=== PATIENT | male | born 1960 | race Caucasian/White ===

== ENCOUNTER 2019-02-20 22:45 | Inpatient (IN) ==
[2019-02-20] MEDS ORDERED: ALBUTEROL/IPRATROPIUM 3 ML NEB RESP TX STA (23:02)
[2019-02-20] MEDS ORDERED: methylPREDNISolone SOD SUC 125 MG/2 ML VIAL IV STA (23:02)
[2019-02-20 23:54] LABS: Basophils # 0.1 10*3/uL (0.0-0.2); Basophils % 0.7 % (0.0-0.8); Eosinophils # 0.2 10*3/uL (0.0-0.87); Eosinophils % 1.1 % (0.00-10.9); Hematocrit 40.5 VOL% (42.0-52.0); Hemoglobin 13.8 GM/DL (14.0-18.0); Immature Granulocytes % 0.4 %; Immature Granulocytes Absolute 0.06 #; Lymphocytes # 2.1 10*3/uL (1.4-4.0); Lymphocytes % 15.9 % (21.2-54.2); Mean Corpuscular HGB Conc 34.1 GM/DL (32-36); Mean Corpuscular Volume 94.4 FL (87-102); Mean Platelet Volume 9.1 FL (9.6-12.0); Monocytes % 10.6 % (1.7-12.7); Neutrophils % 71.3 % (38.7-73.9); Platelet Count 302 T/CUMM (130-400); Red Blood Count 4.29 MC/CUMM (3.8-5.5); Red Cell Distribution Width 13.4 % (9.3-17.3); White Blood Count 13.4 T/CUMM (4-12)
[2019-02-21 00:20] LABS: Albumin 4.1 G/DL (3.4-5.0); Bilirubin,Total 0.4 MG/DL (0.2-1.0); Calcium 9.3 MG/DL (8.5-10.1); Osmolality,Calculated 269.4 MOS/KG (273-304); Total Protein 7.3 G/DL (6.4-8.3)
[2019-02-21] MEDS ORDERED: MIDAZOLAM 2 MG/2 ML VIAL IV STA (00:43)
[2019-02-21] MEDS ORDERED: MEPERIDINE 50 MG/1 ML VIAL IV STA (00:44)
[2019-02-21] MEDS ORDERED: MEPERIDINE 25 MG/1 ML VIAL ONE (00:47)
[2019-02-21] MEDS ORDERED: ONDANSETRON 4 MG/2 ML VIAL IV PRN (01:22)
[2019-02-21] MEDS: MORPHINE 4 MG/1 ML VIAL IV PRN ×5 (01:42→18:00)
[2019-02-21] MEDS: ALBUTEROL/IPRATROPIUM 3 ML NEB RESP TX SCH ×6 (02:15→23:41)
[2019-02-21 03:15] LABS: Risk Ratio 3.13; Thyroid Stimulating Hormone 6.23 uIU/ml (0.358-3.74); VLDL CHOLESTEROL 24.2 MG/DL
[2019-02-21] MEDS: SODIUM CHLORIDE 0.9% 1,000 ML IV SCH ×3 (04:25→18:47)
[2019-02-21 04:26] LABS: Basophils % 0.3 % (0.0-0.8); Hemoglobin 13.4 GM/DL (14.0-18.0); Immature Granulocytes % 0.4 %; Immature Granulocytes Absolute 0.06 #; Lymphocytes # 0.4 10*3/uL (1.4-4.0); Lymphocytes % 2.9 % (21.2-54.2); Mean Corpuscular HGB Conc 34.4 GM/DL (32-36); Mean Corpuscular Volume 93.3 FL (87-102); Mean Platelet Volume 9.4 FL (9.6-12.0); Monocytes % 1.3 % (1.7-12.7); Neutrophils % 95.1 % (38.7-73.9); Platelet Count 317 T/CUMM (130-400); Red Blood Count 4.18 MC/CUMM (3.8-5.5); Red Cell Distribution Width 13.4 % (9.3-17.3); White Blood Count 14.8 T/CUMM (4-12)
[2019-02-21 04:53] LABS: Calcium 8.9 MG/DL (8.5-10.1); Osmolality,Calculated 269.4 MOS/KG (273-304)
[2019-02-21 05:17] LABS: Lymphocytes 4 % (20-55); Segmented Neutrophils 94 % (50-85); Total Cells Counted 100
[2019-02-21 05:18] LABS: Anisocytosis Slight; Microcytosis Slight; Stomatocytes Few
[2019-02-21 05:19] LABS: Platelet Estimate Normal; Polychromasia Slight
[2019-02-21] MEDS ORDERED: IPRATROPIUM 500 MCG/2.5 ML NEB RESP TX SCH (07:00)
[2019-02-21 07:27] LABS: Apearance,Urine CLEAR (Clear); Bilirubin,Urine Negative (Negative); Blood, Urine Negative (Negative); Glucose,Urine (UA) Negative (Negative); Hyaline Casts,Urine 4 /LPF (0-3); Ketones,Urine 5 mg/dL (Negative); Mucus,Urine Occasional /LPF (Occasional); Nitrite,Urine Negative (Negative); Protein,Urine Negative; RBC,Urine 3 /HPF (0-4); Squamous Epithelial Cell,Urine Occasional /HPF (0-10); Urine Color Yellow (Yellow); Urine Specific Gravity 1.017 (1.001-1.035); Urine Urobilinogen < 2.0 EU/DL (0.2-1.0); WBC,Urine <1 /HPF (0-6)
[2019-02-21] MEDS: PANTOPRAZOLE 40 MG TABLET PO SCH (09:05)
[2019-02-21] MEDS ORDERED: CLORAZEPATE 3.75 MG TABLET PO SCH (15:00)
[2019-02-22] MEDS: MORPHINE 4 MG/1 ML VIAL IV PRN ×3 (02:45→13:30)
[2019-02-22] MEDS: ALBUTEROL/IPRATROPIUM 3 ML NEB RESP TX SCH ×4 (03:30→15:32)
[2019-02-22 04:49] LABS: Basophils # 0.1 10*3/uL (0.0-0.2); Basophils % 0.4 % (0.0-0.8); Eosinophils # 0.1 10*3/uL (0.0-0.87); Eosinophils % 0.6 % (0.00-10.9); Lymphocytes # 2.9 10*3/uL (1.4-4.0); Lymphocytes % 23.5 % (21.2-54.2); Monocytes % 12.3 % (1.7-12.7); Neutrophils % 62.7 % (38.7-73.9); White Blood Count 12.1 T/CUMM (4-12)
[2019-02-22] MEDS: PANTOPRAZOLE 40 MG TABLET PO SCH ×2 (07:26→09:26)
[2019-02-22 16:45] VITALS: BP 115/76
== END 2019-02-22 18:40 | disposition home or self-care (01) | DRG 200 ==
LOC: EDBD → EDUNIT# → N.ED 22:45 → N.EDINP 22:45 → N.5E 02-21 02:49 → SUATTDRO 02-21 14:15
PROVIDERS: ADMIT Internal Medicine; ATTEND Internal Medicine

== ENCOUNTER 2019-02-25 04:28 | Inpatient (IN) ==
[2019-02-25] MEDS ORDERED: methylPREDNISolone SOD SUC 125 MG/2 ML VIAL IV STA (04:40)
[2019-02-25] MEDS ORDERED: SODIUM CHLORIDE 0.9% 500 ML IV STA (04:40)
[2019-02-25] MEDS ORDERED: ALBUTEROL/IPRATROPIUM 3 ML NEB RESP TX STA (04:40)
[2019-02-25] MEDS ORDERED: ONDANSETRON 4 MG/2 ML VIAL IV STA (04:40)
[2019-02-25] MEDS ORDERED: MORPHINE 4 MG/1 ML VIAL ONE (04:46)
[2019-02-25 05:03] LABS: Basophils # 0.1 10*3/uL (0.0-0.2); Basophils % 0.8 % (0.0-0.8); Eosinophils # 0.3 10*3/uL (0.0-0.87); Eosinophils % 4.2 % (0.00-10.9); Hematocrit 39.1 VOL% (42.0-52.0); Hemoglobin 13.7 GM/DL (14.0-18.0); Immature Granulocytes % 0.4 %; Immature Granulocytes Absolute 0.03 #; Lymphocytes # 2.3 10*3/uL (1.4-4.0); Lymphocytes % 30.6 % (21.2-54.2); Mean Corpuscular Volume 93.3 FL (87-102); Mean Platelet Volume 9.1 FL (9.6-12.0); Platelet Count 297 T/CUMM (130-400); Red Blood Count 4.19 MC/CUMM (3.8-5.5); Red Cell Distribution Width 13.1 % (9.3-17.3); White Blood Count 7.4 T/CUMM (4-12)
[2019-02-25 05:05] LABS: PT Patient Result 10.6 SECS
[2019-02-25 05:22] LABS: Alanine Aminotransferase 21 U/L (16-61); Albumin 3.9 G/DL (3.4-5.0); Alkaline Phosphatase 89 U/L (45-117); Aspartate Amino Transferase 13 U/L (0-37); Blood Urea Nitrogen 12 MG/DL (7-18); Calcium 9.2 MG/DL (8.5-10.1); Glucose 110 MG/DL (74-106); Total Protein 6.9 G/DL (6.4-8.3); Troponin I < 0.015 NG/ML (0.00-0.045)
[2019-02-25] MEDS ORDERED: ACETAMINOPHEN 325 MG TABLET PO PRN (06:07)
[2019-02-25] MEDS ORDERED: traZODone 50 MG TABLET PO PRN (06:07)
[2019-02-25] MEDS ORDERED: DOCUSATE SODIUM 100 MG CAPSULE PO PRN (06:07)
[2019-02-25] MEDS ORDERED: NICOTINE 21 MG/24 HR PATCH TRANSDERM PRN (06:07)
[2019-02-25] MEDS ORDERED: ONDANSETRON 4 MG/2 ML VIAL IV PRN (06:07)
[2019-02-25] MEDS ORDERED: MORPHINE 4 MG/1 ML VIAL IV STA (06:12)
[2019-02-25 06:26] LABS: ABG Base Excess 3.2 MMOL/L (-2.5-2.5); ABG HCO3 27.2 MMOL/L (20-26); ABG Oxygen Saturation 95.7 % (95-100); ABG PH 7.402 (7.35-7.45); ABG PO2 78.7 MM HG (80-95); ABG TCO2 24.8 MMOL/L (23-27); Allen Test Positive
[2019-02-25] MEDS: ALBUTEROL/IPRATROPIUM 3 ML NEB RESP TX SCH ×3 (08:24→19:27)
[2019-02-25] MEDS ORDERED: ROPINIROLE 2 MG PO SCH (09:00)
[2019-02-25] MEDS ORDERED: VARENICLINE 1 MG PO SCH (09:00)
[2019-02-25] MEDS: MONTELUKAST 10 MG TABLET PO SCH (09:09)
[2019-02-25] MEDS: oxyCODONE/ACETAMINOPHEN 5-325 MG TABLET PO PRN ×3 (09:09→21:28)
[2019-02-25] MEDS: ENOXAPARIN 40 MG/0.4 ML SYRINGE SUBCUT SCH (09:09)
[2019-02-25] MEDS: BUDESONIDE/FORMOTEROL 80-4.5 INHALER 6.9 GM INH SCH ×2 (09:11→21:28)
[2019-02-26] MEDS: ALBUTEROL/IPRATROPIUM 3 ML NEB RESP TX SCH ×4 (00:05→19:04)
[2019-02-26] MEDS: oxyCODONE/ACETAMINOPHEN 5-325 MG TABLET PO PRN ×4 (03:17→21:39)
[2019-02-26 04:43] LABS: Basophils % 0.2 % (0.0-0.8); Eosinophils # 0.1 10*3/uL (0.0-0.87); Eosinophils % 0.5 % (0.00-10.9); Hematocrit 35.2 VOL% (42.0-52.0); Hemoglobin 11.9 GM/DL (14.0-18.0); Immature Granulocytes % 0.5 %; Immature Granulocytes Absolute 0.05 #; Lymphocytes # 1.4 10*3/uL (1.4-4.0); Lymphocytes % 12.6 % (21.2-54.2); Mean Corpuscular HGB Conc 33.8 GM/DL (32-36); Mean Corpuscular Volume 94.6 FL (87-102); Mean Platelet Volume 9.2 FL (9.6-12.0); Monocytes % 11.6 % (1.7-12.7); Neutrophils % 74.6 % (38.7-73.9); Platelet Count 287 T/CUMM (130-400); Red Blood Count 3.72 MC/CUMM (3.8-5.5); Red Cell Distribution Width 13.1 % (9.3-17.3); White Blood Count 10.9 T/CUMM (4-12)
[2019-02-26 05:11] LABS: Calcium 8.8 MG/DL (8.5-10.1); Osmolality,Calculated 274.7 MOS/KG (273-304)
[2019-02-26] MEDS: ENOXAPARIN 40 MG/0.4 ML SYRINGE SUBCUT SCH (07:06)
[2019-02-26] MEDS: BUDESONIDE/FORMOTEROL 80-4.5 INHALER 6.9 GM INH SCH ×2 (08:35→21:38)
[2019-02-26] MEDS: MONTELUKAST 10 MG TABLET PO SCH (08:35)
[2019-02-27] MEDS: ALBUTEROL/IPRATROPIUM 3 ML NEB RESP TX SCH ×4 (00:41→19:48)
[2019-02-27] MEDS: oxyCODONE/ACETAMINOPHEN 5-325 MG TABLET PO PRN ×4 (03:37→23:14)
[2019-02-27 04:57] LABS: Basophils # 0.1 10*3/uL (0.0-0.2); Basophils % 0.9 % (0.0-0.8); Eosinophils # 0.2 10*3/uL (0.0-0.87); Eosinophils % 2.1 % (0.00-10.9); Hematocrit 35.9 VOL% (42.0-52.0); Hemoglobin 12.5 GM/DL (14.0-18.0); Immature Granulocytes % 0.3 %; Immature Granulocytes Absolute 0.03 #; Lymphocytes # 3.5 10*3/uL (1.4-4.0); Lymphocytes % 32.3 % (21.2-54.2); Mean Corpuscular HGB Conc 34.8 GM/DL (32-36); Mean Corpuscular Volume 93.7 FL (87-102); Mean Platelet Volume 9.3 FL (9.6-12.0); Monocytes % 10.5 % (1.7-12.7); Neutrophils % 53.9 % (38.7-73.9); Platelet Count 291 T/CUMM (130-400); Red Blood Count 3.83 MC/CUMM (3.8-5.5); Red Cell Distribution Width 13.3 % (9.3-17.3); White Blood Count 10.9 T/CUMM (4-12)
[2019-02-27 05:30] LABS: Calcium 8.9 MG/DL (8.5-10.1)
[2019-02-27] MEDS: ENOXAPARIN 40 MG/0.4 ML SYRINGE SUBCUT SCH (06:23)
[2019-02-27] MEDS: HYDROmorphone 2 MG/1 ML VIAL IV PRN ×2 (06:37→21:04)
[2019-02-27] MEDS: MONTELUKAST 10 MG TABLET PO SCH (09:15)
[2019-02-27] MEDS: BUDESONIDE/FORMOTEROL 80-4.5 INHALER 6.9 GM INH SCH ×2 (09:15→20:55)
[2019-02-28] MEDS: ALBUTEROL/IPRATROPIUM 3 ML NEB RESP TX SCH ×3 (00:56→13:05)
[2019-02-28 05:18] LABS: Basophils # 0.1 10*3/uL (0.0-0.2); Basophils % 0.9 % (0.0-0.8); Eosinophils # 0.3 10*3/uL (0.0-0.87); Eosinophils % 3.8 % (0.00-10.9); Hematocrit 35.9 VOL% (42.0-52.0); Hemoglobin 12.6 GM/DL (14.0-18.0); Immature Granulocytes % 0.3 %; Immature Granulocytes Absolute 0.02 #; Lymphocytes # 2.7 10*3/uL (1.4-4.0); Lymphocytes % 34.4 % (21.2-54.2); Mean Corpuscular HGB Conc 35.1 GM/DL (32-36); Mean Corpuscular Volume 93.7 FL (87-102); Mean Platelet Volume 9.6 FL (9.6-12.0); Monocytes % 12.8 % (1.7-12.7); Neutrophils % 47.8 % (38.7-73.9); Platelet Count 292 T/CUMM (130-400); Red Blood Count 3.83 MC/CUMM (3.8-5.5); Red Cell Distribution Width 13.2 % (9.3-17.3); White Blood Count 7.9 T/CUMM (4-12)
[2019-02-28 05:42] LABS: Osmolality,Calculated 274.7 MOS/KG (273-304)
[2019-02-28] MEDS: ENOXAPARIN 40 MG/0.4 ML SYRINGE SUBCUT SCH (06:18)
[2019-02-28] MEDS: oxyCODONE/ACETAMINOPHEN 5-325 MG TABLET PO PRN ×2 (06:18→12:15)
[2019-02-28] MEDS ORDERED: LACTULOSE 20 GM/30 ML UDCUP PO ONE (08:08)
[2019-02-28] MEDS ORDERED: BISACODYL 10 MG SUPP RECTAL ONE (08:08)
[2019-02-28] MEDS: MONTELUKAST 10 MG TABLET PO SCH (09:00)
[2019-02-28] MEDS: BUDESONIDE/FORMOTEROL 80-4.5 INHALER 6.9 GM INH SCH (09:01)
[2019-02-28 16:14] VITALS: BP 118/84
== END 2019-02-28 17:04 | disposition home or self-care (01) | DRG 201 ==
LOC: EDBD → EDUNIT# → N.ED 04:28 → SUATTDRO 06:07 → N.EDINP 06:07 → N.3E 06:48
PROVIDERS: ADMIT Internal Medicine; ATTEND Internal Medicine Cardiovascular Disease

== ENCOUNTER 2020-04-10 13:06 | Inpatient (IN) ==
[2020-04-10] MEDS ORDERED: NICOTINE 21 MG/24 HR PATCH TRANSDERM PRN (20:03)
[2020-04-10] MEDS ORDERED: ACETAMINOPHEN 325 MG TABLET PO PRN (20:03)
[2020-04-10] MEDS ORDERED: DOCUSATE SODIUM 100 MG CAPSULE PO PRN (20:03)
[2020-04-10] MEDS ORDERED: DEXTROSE 50% 25 GM/50 ML VIAL IV PRN (20:03)
[2020-04-10] MEDS ORDERED: ONDANSETRON 4 MG/2 ML VIAL IV PRN (20:03)
[2020-04-10] MEDS ORDERED: GLUCAGON 1 MG VIAL IM PRN (20:03)
[2020-04-10] MEDS ORDERED: diphenhydrAMINE CAP 25 MG CAPSULE PO PRN (20:03)
[2020-04-10] MEDS ORDERED: IPRATROPIUM 500 MCG/2.5 ML NEB RESP TX SCH (21:00)
[2020-04-10] MEDS ORDERED: ROPINIROLE 2 MG PO SCH (21:00)
[2020-04-10] MEDS: ROSUVASTATIN 10 MG TABLET PO SCH (21:41)
[2020-04-10] MEDS: rOPINIRole 1 MG TABLET PO SCH (21:41)
[2020-04-10] MEDS: BUDESONIDE/FORMOTEROL 160-4.5 INHALER 6 GM INH SCH (21:42)
[2020-04-10] MEDS: PIPERACILLIN/TAZOBACTAM 3,375 MG in SODIUM CHLORIDE 0.9% 100 ML IV SCH (21:42)
[2020-04-10] MEDS: ENOXAPARIN 40 MG/0.4 ML SYRINGE SUBCUT SCH (21:42)
[2020-04-10] MEDS: SODIUM CHLORIDE 0.9% 1,000 ML IV SCH (21:45)
[2020-04-11 00:14] LABS: Apearance,Urine CLEAR (Clear); Bilirubin,Urine Negative (Negative); Blood, Urine Small mg/dL (Negative); Glucose,Urine (UA) Negative (Negative); Hyaline Casts,Urine 1 /LPF (0-3); Ketones,Urine 5 mg/dL (Negative); Mucus,Urine Occasional /LPF (Occasional); Nitrite,Urine Negative (Negative); Protein,Urine 30 MG/DL; RBC,Urine 5 /HPF (0-4); Squamous Epithelial Cell,Urine Occasional /HPF (0-10); Urine Color Yellow (Yellow); Urine Specific Gravity 1.026 (1.001-1.035); WBC,Urine 1 /HPF (0-6)
[2020-04-11] MEDS: VANCOMYCIN INJ 1,000 MG in SODIUM CHLORIDE 0.9% 250 ML IV SCH (01:43)
[2020-04-11] MEDS: PIPERACILLIN/TAZOBACTAM 3,375 MG in SODIUM CHLORIDE 0.9% 100 ML IV SCH ×3 (05:00→21:24)
[2020-04-11 06:01] LABS: Basophils % 0.2 % (0.0-0.8); Eosinophils % 0.1 % (0.00-10.9); Hematocrit 31.6 VOL% (42.0-52.0); Immature Granulocytes % 0.8 %; Immature Granulocytes Absolute 0.16 #; Lymphocytes # 0.9 10*3/uL (1.4-4.0); Lymphocytes % 4.4 % (21.2-54.2); Mean Corpuscular HGB Conc 34.2 GM/DL (32-36); Mean Corpuscular Volume 95.8 FL (87-102); Mean Platelet Volume 8.9 FL (9.6-12.0); Monocytes % 8.5 % (1.7-12.7); Platelet Count 250 T/CUMM (130-400); Red Cell Distribution Width 13.6 % (9.3-17.3); White Blood Count 19.3 T/CUMM (4-12)
[2020-04-11 06:04] LABS: Hemoglobin 10.8 GM/DL (14.0-18.0)
[2020-04-11 06:17] LABS: Albumin 2.6 G/DL (3.4-5.0); Bilirubin,Total 0.7 MG/DL (0.2-1.0); Calcium 8.2 MG/DL (8.5-10.1); Osmolality,Calculated 259.9 MOS/KG (273-304); Thyroid Stimulating Hormone 0.496 uIU/ml (0.358-3.74); Total Protein 5.5 G/DL (6.4-8.3)
[2020-04-11 06:27] LABS: Band Neutrophils 2 % (0-10); Hypochromasia Slight; Lymphocytes 1 % (20-55); Microcytosis Slight; Ovalocytes Slight; Platelet Estimate Adequate; Segmented Neutrophils 88 % (50-85); Total Cells Counted 100
[2020-04-11] MEDS: ALBUTEROL/IPRATROPIUM 3 ML NEB RESP TX SCH ×4 (07:26→19:54)
[2020-04-11] MEDS: PANTOPRAZOLE 40 MG TABLET PO SCH (09:46)
[2020-04-11] MEDS: ASPIRIN EC 81 MG TABLET PO SCH (09:46)
[2020-04-11] MEDS: BUDESONIDE/FORMOTEROL 160-4.5 INHALER 6 GM INH SCH ×2 (09:46→21:26)
[2020-04-11] MEDS: MONTELUKAST 10 MG TABLET PO SCH (09:46)
[2020-04-11] MEDS: SODIUM CHLORIDE 0.9% 1,000 ML IV SCH ×2 (11:13→21:30)
[2020-04-11] MEDS: NEBIVOLOL 5 MG TABLET PO SCH (11:13)
[2020-04-11] MEDS: SPIRIVA RESPIMAT INH SCH (15:47)
[2020-04-11] MEDS: ENOXAPARIN 40 MG/0.4 ML SYRINGE SUBCUT SCH (21:25)
[2020-04-11] MEDS: rOPINIRole 1 MG TABLET PO SCH (21:26)
[2020-04-11] MEDS: ROSUVASTATIN 10 MG TABLET PO SCH (21:26)
[2020-04-12] MEDS: VANCOMYCIN INJ 1,000 MG in SODIUM CHLORIDE 0.9% 250 ML IV SCH (01:45)
[2020-04-12] MEDS: PIPERACILLIN/TAZOBACTAM 3,375 MG in SODIUM CHLORIDE 0.9% 100 ML IV SCH ×3 (05:35→21:15)
[2020-04-12 06:22] LABS: Basophils % 0.1 % (0.0-0.8); Eosinophils # 0.1 10*3/uL (0.0-0.87); Eosinophils % 0.4 % (0.00-10.9); Hematocrit 28.2 VOL% (42.0-52.0); Hemoglobin 9.7 GM/DL (14.0-18.0); Immature Granulocytes % 0.6 %; Immature Granulocytes Absolute 0.08 #; Lymphocytes # 2.5 10*3/uL (1.4-4.0); Lymphocytes % 17.8 % (21.2-54.2); Mean Corpuscular HGB Conc 34.4 GM/DL (32-36); Mean Corpuscular Volume 95.9 FL (87-102); Monocytes % 7.9 % (1.7-12.7); Neutrophils % 73.2 % (38.7-73.9); Platelet Count 240 T/CUMM (130-400); Red Blood Count 2.94 MC/CUMM (3.8-5.5); Red Cell Distribution Width 14.1 % (9.3-17.3); White Blood Count 13.8 T/CUMM (4-12)
[2020-04-12 06:36] LABS: Calcium 8.1 MG/DL (8.5-10.1); Osmolality,Calculated 264.4 MOS/KG (273-304)
[2020-04-12] MEDS: ALBUTEROL/IPRATROPIUM 3 ML NEB RESP TX SCH ×4 (07:55→18:50)
[2020-04-12] MEDS: NEBIVOLOL 5 MG TABLET PO SCH (10:10)
[2020-04-12] MEDS: ASPIRIN EC 81 MG TABLET PO SCH (10:10)
[2020-04-12] MEDS: MONTELUKAST 10 MG TABLET PO SCH (10:11)
[2020-04-12] MEDS: SPIRIVA RESPIMAT INH SCH (10:11)
[2020-04-12] MEDS: PANTOPRAZOLE 40 MG TABLET PO SCH (10:11)
[2020-04-12] MEDS: BUDESONIDE/FORMOTEROL 160-4.5 INHALER 6 GM INH SCH ×2 (10:11→21:15)
[2020-04-12] MEDS: ENOXAPARIN 40 MG/0.4 ML SYRINGE SUBCUT SCH (21:15)
[2020-04-12] MEDS: ROSUVASTATIN 10 MG TABLET PO SCH (21:15)
[2020-04-12] MEDS: rOPINIRole 1 MG TABLET PO SCH (21:15)
[2020-04-13] MEDS: SODIUM CHLORIDE 0.9% 1,000 ML IV SCH ×3 (01:30→20:30)
[2020-04-13] MEDS: VANCOMYCIN INJ 1,000 MG in SODIUM CHLORIDE 0.9% 250 ML IV SCH (01:30)
[2020-04-13] MEDS: PIPERACILLIN/TAZOBACTAM 3,375 MG in SODIUM CHLORIDE 0.9% 100 ML IV SCH (04:45)
[2020-04-13] MEDS: ALBUTEROL/IPRATROPIUM 3 ML NEB RESP TX SCH ×4 (07:21→19:56)
[2020-04-13] MEDS ORDERED: MAGNESIUM HYDROXIDE SUSP 30 ML UDCUP PO PRN (08:30)
[2020-04-13] MEDS ORDERED: LACTULOSE 20 GM/30 ML UDCUP PO PRN (08:30)
[2020-04-13] MEDS ORDERED: PROMETHAZINE 25 MG/1 ML VIAL IM PRN (08:30)
[2020-04-13] MEDS ORDERED: BISACODYL 10 MG SUPP RECTAL PRN (08:30)
[2020-04-13] MEDS ORDERED: propofoL 200 MG/20 ML VIAL IV ONE (08:31)
[2020-04-13] MEDS ORDERED: LIDOCAINE 2% 5 ML VIAL ONE (08:31)
[2020-04-13] MEDS ORDERED: SEVOFLURANE 1 UNIT/15 MINUTE INH ONE (08:31)
[2020-04-13] MEDS ORDERED: SODIUM CHLORIDE 0.9% 1,000 ML IV ONE (08:32)
[2020-04-13] MEDS ORDERED: ONDANSETRON 4 MG/2 ML VIAL ONE ×2 (08:32)
[2020-04-13] MEDS ORDERED: MEPERIDINE 25 MG/1 ML VIAL IV PRN (08:32)
[2020-04-13] MEDS ORDERED: MEPERIDINE 25 MG/1 ML VIAL ONE (08:32)
[2020-04-13] MEDS ORDERED: ACETAMINOPHEN 1,000 MG/100 ML VIAL IV ONE (08:32)
[2020-04-13] MEDS ORDERED: ONDANSETRON 4 MG/2 ML VIAL IV PRN (08:32)
[2020-04-13] MEDS ORDERED: DEXAMETHASONE 4 MG/1 ML VIAL ONE (08:32)
[2020-04-13] MEDS ORDERED: MIDAZOLAM 2 MG/2 ML VIAL ONE (08:32)
[2020-04-13] MEDS ORDERED: PROMETHAZINE INJ 25 MG in SODIUM CHLORIDE 0.9% 50 ML IV PRN (08:32)
[2020-04-13] MEDS ORDERED: diphenhydrAMINE 50 MG/1 ML VIAL IV PRN (08:32)
[2020-04-13] MEDS ORDERED: fentaNYL 100 MCG/2 ML VIAL ONE (08:32)
[2020-04-13] MEDS ORDERED: MORPHINE 4 MG/1 ML VIAL IV PRN (08:55)
[2020-04-13] MEDS: MONTELUKAST 10 MG TABLET PO SCH (09:49)
[2020-04-13] MEDS: NEBIVOLOL 5 MG TABLET PO SCH (09:49)
[2020-04-13] MEDS: ASPIRIN EC 81 MG TABLET PO SCH (09:49)
[2020-04-13] MEDS: SULFAMETHOX/TRIMETHOPRIM 800-160 MG TABLET PO SCH ×2 (09:49→20:28)
[2020-04-13] MEDS: PANTOPRAZOLE 40 MG TABLET PO SCH (09:49)
[2020-04-13] MEDS: BUDESONIDE/FORMOTEROL 160-4.5 INHALER 6 GM INH SCH ×2 (09:50→20:29)
[2020-04-13] MEDS: MORPHINE 4 MG/1 ML VIAL IV PRN ×2 (09:50→14:35)
[2020-04-13] MEDS: SPIRIVA RESPIMAT INH SCH (10:30)
[2020-04-13] MEDS: CHOLECALCIFEROL 1,000 UNIT TABLET PO SCH (12:43)
[2020-04-13] MEDS: ENOXAPARIN 40 MG/0.4 ML SYRINGE SUBCUT SCH (20:28)
[2020-04-13] MEDS: rOPINIRole 1 MG TABLET PO SCH (20:28)
[2020-04-13] MEDS: ROSUVASTATIN 10 MG TABLET PO SCH (20:29)
[2020-04-14] MEDS: VANCOMYCIN INJ 1,000 MG in SODIUM CHLORIDE 0.9% 250 ML IV SCH (01:29)
[2020-04-14] MEDS: ALBUTEROL/IPRATROPIUM 3 ML NEB RESP TX SCH ×5 (01:31→19:10)
[2020-04-14] MEDS: SODIUM CHLORIDE 0.9% 1,000 ML IV SCH ×2 (06:39→14:12)
[2020-04-14 07:03] LABS: Basophils % 0.2 % (0.0-0.8); Eosinophils # 0.1 10*3/uL (0.0-0.87); Eosinophils % 0.5 % (0.00-10.9); Hematocrit 29.5 VOL% (42.0-52.0); Hemoglobin 10.1 GM/DL (14.0-18.0); Immature Granulocytes % 0.6 %; Immature Granulocytes Absolute 0.06 #; Lymphocytes # 2.2 10*3/uL (1.4-4.0); Lymphocytes % 21.1 % (21.2-54.2); Mean Corpuscular HGB Conc 34.2 GM/DL (32-36); Mean Corpuscular Volume 96.1 FL (87-102); Mean Platelet Volume 8.6 FL (9.6-12.0); Monocytes % 10.4 % (1.7-12.7); Neutrophils % 67.2 % (38.7-73.9); Platelet Count 278 T/CUMM (130-400); Red Blood Count 3.07 MC/CUMM (3.8-5.5); Red Cell Distribution Width 13.8 % (9.3-17.3); White Blood Count 10.2 T/CUMM (4-12)
[2020-04-14 07:37] LABS: Calcium 8.2 MG/DL (8.5-10.1)
[2020-04-14] MEDS: MORPHINE 4 MG/1 ML VIAL IV PRN ×3 (09:24→21:41)
[2020-04-14] MEDS: ASPIRIN EC 81 MG TABLET PO SCH (09:25)
[2020-04-14] MEDS: NEBIVOLOL 5 MG TABLET PO SCH (09:25)
[2020-04-14] MEDS: MONTELUKAST 10 MG TABLET PO SCH (09:25)
[2020-04-14] MEDS: SULFAMETHOX/TRIMETHOPRIM 800-160 MG TABLET PO SCH ×2 (09:26→21:32)
[2020-04-14] MEDS: CHOLECALCIFEROL 1,000 UNIT TABLET PO SCH (09:26)
[2020-04-14] MEDS: PANTOPRAZOLE 40 MG TABLET PO SCH (09:26)
[2020-04-14] MEDS: BUDESONIDE/FORMOTEROL 160-4.5 INHALER 6 GM INH SCH ×2 (09:32→21:33)
[2020-04-14] MEDS: SPIRIVA RESPIMAT INH SCH (09:33)
[2020-04-14] MEDS: ENOXAPARIN 40 MG/0.4 ML SYRINGE SUBCUT SCH (21:32)
[2020-04-14] MEDS: rOPINIRole 1 MG TABLET PO SCH (21:32)
[2020-04-14] MEDS: ROSUVASTATIN 10 MG TABLET PO SCH (21:32)
[2020-04-15] MEDS: SODIUM CHLORIDE 0.9% 1,000 ML IV SCH ×2 (03:35→10:46)
[2020-04-15] MEDS ORDERED: propofoL 200 MG/20 ML VIAL IV ONE (08:09)
[2020-04-15] MEDS ORDERED: MIDAZOLAM 2 MG/2 ML VIAL ONE (08:10)
[2020-04-15] MEDS ORDERED: fentaNYL 100 MCG/2 ML VIAL ONE (08:10)
[2020-04-15] MEDS ORDERED: ONDANSETRON 4 MG/2 ML VIAL ONE (08:10)
[2020-04-15] MEDS ORDERED: SEVOFLURANE 1 UNIT/15 MINUTE INH ONE (08:10)
[2020-04-15] MEDS ORDERED: DEXAMETHASONE 4 MG/1 ML VIAL ONE (08:10)
[2020-04-15] MEDS ORDERED: LIDOCAINE 2% 5 ML VIAL ONE (08:10)
[2020-04-15] MEDS: ALBUTEROL/IPRATROPIUM 3 ML NEB RESP TX SCH ×3 (08:11→16:31)
[2020-04-15] MEDS: MONTELUKAST 10 MG TABLET PO SCH (09:24)
[2020-04-15] MEDS: ASPIRIN EC 81 MG TABLET PO SCH (09:24)
[2020-04-15] MEDS: CHOLECALCIFEROL 1,000 UNIT TABLET PO SCH (09:24)
[2020-04-15] MEDS: NEBIVOLOL 5 MG TABLET PO SCH (09:24)
[2020-04-15] MEDS: SULFAMETHOX/TRIMETHOPRIM 800-160 MG TABLET PO SCH (09:24)
[2020-04-15] MEDS: PANTOPRAZOLE 40 MG TABLET PO SCH (09:25)
[2020-04-15] MEDS: BUDESONIDE/FORMOTEROL 160-4.5 INHALER 6 GM INH SCH (09:29)
[2020-04-15] MEDS: SPIRIVA RESPIMAT INH SCH (09:29)
[2020-04-15 15:08] VITALS: BP 144/72
== END 2020-04-15 16:34 | disposition home or self-care (01) | DRG 464 ==
LOC: N.EDINP 18:31 → SUATTDRO 18:31 → N.3E 19:04
PROVIDERS: ADMIT Internal Medicine; ATTEND Internal Medicine

== ENCOUNTER 2021-03-09 17:46 | Observation (INO) ==
[2021-03-09] MEDS ORDERED: ALUM/MAG/SIMETH/LIDO VISC 1:1 30 ML BOTTLE PO STA (19:25)
[2021-03-09] MEDS ORDERED: ONDANSETRON 4 MG/2 ML VIAL IV STA (19:25)
[2021-03-09] MEDS ORDERED: MORPHINE 4 MG/1 ML VIAL IV STA (19:25)
[2021-03-09] MEDS ORDERED: NITROGLYCERIN 2% OINT 1 INCH/GM PACK TOP STA (19:25)
[2021-03-09] MEDS ORDERED: ASPIRIN 325 MG TABLET PO STA (19:25)
[2021-03-09 19:39] LABS: Basophils % 0.2 % (0.0-0.8); Hematocrit 37.9 VOL% (42.0-52.0); Hemoglobin 12.8 GM/DL (14.0-18.0); Immature Granulocytes % 0.6 %; Immature Granulocytes Absolute 0.06 #; Lymphocytes # 0.9 10*3/uL (1.4-4.0); Lymphocytes % 9.7 % (21.2-54.2); Mean Corpuscular HGB Conc 33.8 GM/DL (32-36); Mean Corpuscular Volume 97.9 FL (87-102); Mean Platelet Volume 8.9 FL (9.6-12.0); Monocytes % 6.5 % (1.7-12.7); Platelet Count 343 T/CUMM (130-400); Red Blood Count 3.87 MC/CUMM (3.8-5.5); Red Cell Distribution Width 13.9 % (9.3-17.3); White Blood Count 9.7 T/CUMM (4-12)
[2021-03-09 19:47] LABS: PT Patient Result 11.3 SECS (10.5-12.0)
[2021-03-09] MEDS ORDERED: ENOXAPARIN 100 MG/ML SYRINGE SUBCUT STA (20:00)
[2021-03-09] MEDS ORDERED: diphenhydrAMINE 50 MG/1 ML VIAL IV STA (20:17)
[2021-03-09] MEDS ORDERED: methylPREDNISolone SOD SUC 125 MG/2 ML VIAL IV STA (20:17)
[2021-03-09] MEDS ORDERED: FAMOTIDINE 20 MG/2 ML VIAL IV STA (20:17)
[2021-03-09] MEDS ORDERED: methylPREDNISolone SOD SUC 125 MG/2 ML VIAL ONE (20:18)
[2021-03-09] MEDS ORDERED: diphenhydrAMINE 50 MG/1 ML VIAL ONE (20:18)
[2021-03-09] MEDS ORDERED: FAMOTIDINE 20 MG/2 ML VIAL IV ONE (20:19)
[2021-03-09 21:58] LABS: Albumin 3.6 G/DL (3.4-5.0); Bilirubin,Total 0.4 MG/DL (0.2-1.0); Calcium 8.9 MG/DL (8.5-10.1); Osmolality,Calculated 264.4 MOS/KG (273-304); Potassium 3.9 MMOL/L (3.5-5.1); Total Protein 6.3 G/DL (6.4-8.2)
[2021-03-09] MEDS ORDERED: GLUCAGON 1 MG VIAL IM PRN (22:37)
[2021-03-09] MEDS ORDERED: guaiFENesin/DM ER 600-30 MG TABLET PO PRN (22:37)
[2021-03-09] MEDS ORDERED: diphenhydrAMINE CAP 25 MG CAPSULE PO PRN (22:37)
[2021-03-09] MEDS ORDERED: DEXTROSE 50% 25 GM/50 ML VIAL IV PRN (22:37)
[2021-03-09] MEDS ORDERED: ONDANSETRON 4 MG/2 ML VIAL IV PRN (22:37)
[2021-03-09] MEDS ORDERED: ACETAMINOPHEN 325 MG TABLET PO PRN (22:37)
[2021-03-09] MEDS ORDERED: NICOTINE 21 MG/24 HR PATCH TRANSDERM PRN (22:37)
[2021-03-09] MEDS ORDERED: ZALEPLON 5 MG CAPSULE PO PRN (22:37)
[2021-03-09] MEDS ORDERED: hydrALAZINE 20 MG/1 ML VIAL IV PRN (22:37)
[2021-03-10 01:32] LABS: Basophils % 0.2 % (0.0-0.8); Hematocrit 40.4 VOL% (42.0-52.0); Immature Granulocytes % 0.4 %; Immature Granulocytes Absolute 0.03 #; Lymphocytes # 0.5 10*3/uL (1.4-4.0); Lymphocytes % 6.5 % (21.2-54.2); Mean Corpuscular HGB Conc 34.7 GM/DL (32-36); Mean Corpuscular Volume 97.1 FL (87-102); Mean Platelet Volume 8.7 FL (9.6-12.0); Monocytes % 1.2 % (1.7-12.7); Neutrophils % 91.7 % (38.7-73.9); Platelet Count 329 T/CUMM (130-400); Red Blood Count 4.16 MC/CUMM (3.8-5.5); Red Cell Distribution Width 13.8 % (9.3-17.3); White Blood Count 8.4 T/CUMM (4-12)
[2021-03-10 01:55] LABS: Calcium 9.1 MG/DL (8.5-10.1); Osmolality,Calculated 260.8 MOS/KG (273-304); Potassium 4.6 MMOL/L (3.5-5.1)
[2021-03-10 02:07] LABS: Lymphocytes 9 % (20-55); Segmented Neutrophils 90 % (50-85); Total Cells Counted 100
[2021-03-10 02:08] LABS: Platelet Estimate Normal
[2021-03-10] MEDS: ALBUTEROL/IPRATROPIUM 3 ML NEB RESP TX SCH ×2 (02:31→06:58)
[2021-03-10] MEDS ORDERED: rOPINIRole 4 MG TABLET PO SCH (03:09)
[2021-03-10] MEDS ORDERED: SODIUM CHLORIDE 0.9% 1,000 ML IV SCH (07:00)
[2021-03-10] MEDS ORDERED: PANTOPRAZOLE 40 MG TABLET PO SCH (09:00)
[2021-03-10] MEDS ORDERED: ENOXAPARIN 40 MG/0.4 ML SYRINGE SUBCUT SCH (09:00)
[2021-03-10] MEDS ORDERED: DOCUSATE SODIUM 100 MG CAPSULE PO SCH (09:00)
[2021-03-10 12:28] VITALS: BP 92/58
== END 2021-03-10 15:25 | disposition home or self-care (01) ==
LOC: N.EDINP 17:46 → N.ED 17:46 → N.4E 03-10 00:41
PROVIDERS: ADMIT Hospitalist; ATTEND Hospitalist

== ENCOUNTER 2021-03-24 09:04 | Inpatient (IN) ==
[2021-03-24] MEDS ORDERED: methylPREDNISolone SOD SUC 125 MG/2 ML VIAL IV STA (09:37)
[2021-03-24] MEDS ORDERED: ALBUTEROL 2.5 MG/3 ML NEB RESP TX STA ×2 (09:37→10:51)
[2021-03-24 10:06] LABS: ABG Base Excess 2.7 MMOL/L (-2.5-2.5); ABG HCO3 30.6 MMOL/L (20-26); ABG PCO2 62.4 MM HG (35-48); ABG PH 7.308 (7.35-7.45); ABG PO2 113.1 MM HG (80-95); ABG TCO2 32.5 MMOL/L (23-27)
[2021-03-24 10:13] LABS: Basophils # 0.1 10*3/uL (0.0-0.2); Basophils % 0.9 % (0.0-0.8); Eosinophils # 0.1 10*3/uL (0.0-0.87); Eosinophils % 0.6 % (0.00-10.9); Hemoglobin 14.3 GM/DL (14.0-18.0); Immature Granulocytes % 0.4 %; Immature Granulocytes Absolute 0.04 #; Lymphocytes # 0.6 10*3/uL (1.4-4.0); Lymphocytes % 6.3 % (21.2-54.2); Mean Corpuscular HGB Conc 34.9 GM/DL (32-36); Mean Corpuscular Volume 97.2 FL (87-102); Mean Platelet Volume 8.9 FL (9.6-12.0); Neutrophils % 78.8 % (38.7-73.9); Platelet Count 264 T/CUMM (130-400); Red Blood Count 4.22 MC/CUMM (3.8-5.5); Red Cell Distribution Width 13.2 % (9.3-17.3); White Blood Count 8.9 T/CUMM (4-12)
[2021-03-24 10:39] LABS: Albumin 3.8 G/DL (3.4-5.0); Bilirubin,Total 0.4 MG/DL (0.20-1.00); Calcium 9.2 MG/DL (8.5-10.1); Osmolality,Calculated 255.1 MOS/KG (273-304); Potassium 4.2 MMOL/L (3.5-5.1); Total Protein 7.3 G/DL (6.4-8.2)
[2021-03-24] MEDS ORDERED: MIDAZOLAM 2 MG/2 ML VIAL ONE (11:04)
[2021-03-24] MEDS ORDERED: ETOMIDATE 20 MG/10 ML VIAL IV ONE (11:09)
[2021-03-24] MEDS ORDERED: ROCURONIUM 100 MG/10 ML VIAL IV ONE (11:10)
[2021-03-24] MEDS ORDERED: MIDAZOLAM 2 MG/2 ML VIAL IV STA (11:12)
[2021-03-24] MEDS: MIDAZOLAM 100 MG in SODIUM CHLORIDE 0.9% 80 ML IV PRN (11:20)
[2021-03-24 11:42] LABS: ABG Base Excess 0.1 MMOL/L (-2.5-2.5); ABG HCO3 24.5 MMOL/L (20-26); ABG PH 7.465 (7.35-7.45); ABG TCO2 20.2 MMOL/L (23-27)
[2021-03-24] MEDS ORDERED: SODIUM CHLORIDE 0.9% 2,000 ML IV STA (12:05)
[2021-03-24] MEDS: cefTRIAXone 1,000 MG in SODIUM CHLORIDE 0.9% 100 ML IV SCH (12:40)
[2021-03-24] MEDS: AZITHROMYCIN INJ 500 MG in SODIUM CHLORIDE 0.9% 250 ML IV SCH (13:08)
[2021-03-24] MEDS: ENOXAPARIN 40 MG/0.4 ML SYRINGE SUBCUT SCH (13:08)
[2021-03-24] MEDS: methylPREDNISolone SOD SUC 125 MG/2 ML VIAL IV SCH (13:10)
[2021-03-24] MEDS ORDERED: NOREPINEPHRINE 4 MG/4 ML VIAL IV ONE (13:58)
[2021-03-24] MEDS: NOREPINEPHRINE 8 MG in SODIUM CHLORIDE 0.9% 242 ML IV PRN (15:00)
[2021-03-24] MEDS: FAMOTIDINE 8 MG/ML 50 ML/BOTTLE PER TUBE SCH (21:35)
[2021-03-25] MEDS: methylPREDNISolone SOD SUC 125 MG/2 ML VIAL IV SCH ×2 (02:33→12:50)
[2021-03-25 04:40] LABS: ABG Base Excess 1.5 MMOL/L (-2.5-2.5); ABG HCO3 25.7 MMOL/L (20-26); ABG Oxygen Saturation 99.5 % (95-100); ABG PCO2 44.2 MM HG (35-48); ABG PH 7.391 (7.35-7.45); ABG TCO2 23.5 MMOL/L (23-27)
[2021-03-25 05:06] LABS: Hemoglobin 13.7 GM/DL (14.0-18.0); Immature Granulocytes % 0.5 %; Immature Granulocytes Absolute 0.05 #; Lymphocytes # 0.5 10*3/uL (1.4-4.0); Lymphocytes % 4.7 % (21.2-54.2); Mean Corpuscular HGB Conc 33.4 GM/DL (32-36); Mean Corpuscular Volume 98.8 FL (87-102); Mean Platelet Volume 8.9 FL (9.6-12.0); Monocytes % 6.8 % (1.7-12.7); Platelet Count 299 T/CUMM (130-400); Red Blood Count 4.15 MC/CUMM (3.8-5.5); Red Cell Distribution Width 13.2 % (9.3-17.3); White Blood Count 10.4 T/CUMM (4-12)
[2021-03-25 05:24] LABS: Calcium 8.8 MG/DL (8.5-10.1); Osmolality,Calculated 267.5 MOS/KG (273-304)
[2021-03-25 05:31] LABS: Band Neutrophils 5 % (0-10); Hypochromasia Slight; Lymphocytes 4 % (20-55); Microcytosis 1+; Ovalocytes Slight; Segmented Neutrophils 88 % (50-85); Total Cells Counted 100
[2021-03-25 05:32] LABS: Platelet Estimate Normal
[2021-03-25] MEDS: MIDAZOLAM 100 MG in SODIUM CHLORIDE 0.9% 80 ML IV PRN (05:48)
[2021-03-25 05:50] LABS: Albumin 3.4 G/DL (3.4-5.0); Bilirubin,Total 0.4 MG/DL (0.20-1.00); Calcium 8.9 MG/DL (8.5-10.1); Osmolality,Calculated 268.4 MOS/KG (273-304); Potassium 4.7 MMOL/L (3.5-5.1); Risk Ratio 1.48; Thyroid Stimulating Hormone 1.18 uIU/ml (0.358-3.74)
[2021-03-25] MEDS ORDERED: DEXTROSE 50% 25 GM/50 ML VIAL IV PRN (08:30)
[2021-03-25] MEDS ORDERED: GLUCAGON 1 MG VIAL IM PRN (08:30)
[2021-03-25] MEDS: FAMOTIDINE 8 MG/ML 50 ML/BOTTLE PER TUBE SCH ×2 (08:40→21:20)
[2021-03-25] MEDS: ENOXAPARIN 40 MG/0.4 ML SYRINGE SUBCUT SCH (12:50)
[2021-03-25] MEDS: cefTRIAXone 1,000 MG in SODIUM CHLORIDE 0.9% 100 ML IV SCH (12:55)
[2021-03-25] MEDS: AZITHROMYCIN INJ 500 MG in SODIUM CHLORIDE 0.9% 250 ML IV SCH (12:55)
[2021-03-25] MEDS ORDERED: INSULIN LISPRO 100 UNIT/ML ONE (23:41)
[2021-03-26] MEDS: INSULIN LISPRO 100 UNIT/ML SUBCUT SCH ×4 (00:12→17:54)
[2021-03-26] MEDS: methylPREDNISolone SOD SUC 125 MG/2 ML VIAL IV SCH ×3 (00:22→21:04)
[2021-03-26] MEDS: MIDAZOLAM 100 MG in SODIUM CHLORIDE 0.9% 80 ML IV PRN ×3 (00:46→23:27)
[2021-03-26 04:10] LABS: Allen Test Positive; Pt O2 Delivery Device Ventilator
[2021-03-26 04:15] LABS: ABG Base Excess -10.6 MMOL/L (-2.5-2.5); ABG HCO3 11.1 MMOL/L (20-26); ABG PH 7.411 (7.35-7.45); ABG PO2 128.2 MM HG (80-95); ABG TCO2 11.6 MMOL/L (23-27)
[2021-03-26 04:16] LABS: ABG Oxygen Saturation 98.7 % (95-100)
[2021-03-26 04:53] LABS: Basophils % 0.1 % (0.0-0.8); Hematocrit 37.5 VOL% (42.0-52.0); Hemoglobin 12.6 GM/DL (14.0-18.0); Immature Granulocytes % 0.6 %; Immature Granulocytes Absolute 0.07 #; Lymphocytes # 0.3 10*3/uL (1.4-4.0); Lymphocytes % 2.5 % (21.2-54.2); Mean Corpuscular HGB Conc 33.6 GM/DL (32-36); Mean Corpuscular Volume 99.5 FL (87-102); Monocytes % 3.3 % (1.7-12.7); Neutrophils % 93.5 % (38.7-73.9); Platelet Count 277 T/CUMM (130-400); Red Blood Count 3.77 MC/CUMM (3.8-5.5); Red Cell Distribution Width 13.9 % (9.3-17.3); White Blood Count 11.9 T/CUMM (4-12)
[2021-03-26 05:20] LABS: Calcium 8.3 MG/DL (8.5-10.1); Osmolality,Calculated 279.2 MOS/KG (273-304); Potassium 4.5 MMOL/L (3.5-5.1)
[2021-03-26 05:54] LABS: Band Neutrophils 1 % (0-10); Platelet Estimate Normal; Segmented Neutrophils 99 % (50-85); Total Cells Counted 100
[2021-03-26] MEDS: BISOPROLOL 5 MG TABLET PO SCH (09:28)
[2021-03-26] MEDS: CHOLECALCIFEROL 1,000 UNIT TABLET PO SCH (09:28)
[2021-03-26] MEDS: FAMOTIDINE 8 MG/ML 50 ML/BOTTLE PER TUBE SCH ×2 (09:29→21:05)
[2021-03-26] MEDS: MONTELUKAST 10 MG TABLET PO SCH (09:29)
[2021-03-26] MEDS: ASPIRIN EC 81 MG TABLET PO SCH (09:29)
[2021-03-26] MEDS: PIPERACILLIN/TAZOBACTAM 3,375 MG in SODIUM CHLORIDE 0.9% 100 ML IV SCH ×2 (09:30→17:50)
[2021-03-26 10:01] LABS: ABG Base Excess 0.2 MMOL/L (-2.5-2.5); ABG HCO3 24.6 MMOL/L (20-26); ABG Oxygen Saturation 97.4 % (95-100); ABG PCO2 57.5 MM HG (35-48); ABG PH 7.297 (7.35-7.45); ABG TCO2 24.8 MMOL/L (23-27)
[2021-03-26 12:03] LABS: ABG Base Excess -0.2 MMOL/L (-2.5-2.5); ABG HCO3 24.2 MMOL/L (20-26); ABG Oxygen Saturation 95.5 % (95-100); ABG PCO2 59.6 MM HG (35-48); ABG PH 7.281 (7.35-7.45); ABG PO2 87.9 MM HG (80-95); ABG TCO2 24.9 MMOL/L (23-27); Allen Test Positive; Pt O2 Delivery Device Ventilator
[2021-03-26] MEDS: AZITHROMYCIN INJ 500 MG in SODIUM CHLORIDE 0.9% 250 ML IV SCH (13:03)
[2021-03-26] MEDS: ENOXAPARIN 40 MG/0.4 ML SYRINGE SUBCUT SCH (13:04)
[2021-03-26 13:36] LABS: ABG Base Excess -1.5 MMOL/L (-2.5-2.5); ABG HCO3 23.2 MMOL/L (20-26); ABG PCO2 59.3 MM HG (35-48); ABG PH 7.266 (7.35-7.45); ABG TCO2 24.1 MMOL/L (23-27)
[2021-03-26] MEDS: NOREPINEPHRINE 8 MG in SODIUM CHLORIDE 0.9% 242 ML IV PRN (15:07)
[2021-03-26 18:07] LABS: ABG Base Excess 1.1 MMOL/L (-2.5-2.5); ABG HCO3 27.9 MMOL/L (20-26); ABG Oxygen Saturation 93.2 % (95-100); ABG PCO2 53.6 MM HG (35-48); ABG PH 7.334 (7.35-7.45); ABG PO2 71.1 MM HG (80-95); ABG TCO2 29.5 MMOL/L (23-27); Allen Test Positive; Pt O2 Delivery Device Ventilator
[2021-03-26] MEDS: ALBUTEROL/IPRATROPIUM 3 ML NEB RESP TX SCH (19:40)
[2021-03-26] MEDS: rOPINIRole 4 MG TABLET PO SCH (21:05)
[2021-03-26] MEDS: ROSUVASTATIN 10 MG TABLET PO SCH (21:05)
[2021-03-26] MEDS: MIRTAZAPINE 15 MG TABLET PO SCH (21:05)
[2021-03-27] MEDS: ALBUTEROL/IPRATROPIUM 3 ML NEB RESP TX SCH ×4 (00:30→19:30)
[2021-03-27] MEDS: INSULIN LISPRO 100 UNIT/ML SUBCUT SCH ×4 (00:37→18:01)
[2021-03-27] MEDS: PIPERACILLIN/TAZOBACTAM 3,375 MG in SODIUM CHLORIDE 0.9% 100 ML IV SCH ×3 (02:45→17:18)
[2021-03-27 03:09] LABS: ABG Base Excess 1.7 MMOL/L (-2.5-2.5); ABG HCO3 25.8 MMOL/L (20-26); ABG Oxygen Saturation 93.2 % (95-100); ABG PCO2 57.5 MM HG (35-48); ABG PH 7.317 (7.35-7.45); ABG PO2 72.8 MM HG (80-95); ABG TCO2 26.1 MMOL/L (23-27); Allen Test Positive; Pt O2 Delivery Device Ventilator
[2021-03-27 04:23] LABS: Basophils % 0.1 % (0.0-0.8); Hematocrit 37.1 VOL% (42.0-52.0); Hemoglobin 12.9 GM/DL (14.0-18.0); Immature Granulocytes % 1.4 %; Immature Granulocytes Absolute 0.17 #; Lymphocytes # 0.2 10*3/uL (1.4-4.0); Lymphocytes % 1.9 % (21.2-54.2); Mean Corpuscular HGB Conc 34.8 GM/DL (32-36); Mean Corpuscular Volume 96.9 FL (87-102); Mean Platelet Volume 9.4 FL (9.6-12.0); Monocytes % 8.7 % (1.7-12.7); Neutrophils % 87.9 % (38.7-73.9); Platelet Count 281 T/CUMM (130-400); Red Blood Count 3.83 MC/CUMM (3.8-5.5); Red Cell Distribution Width 14.2 % (9.3-17.3); White Blood Count 12.6 T/CUMM (4-12)
[2021-03-27] MEDS: methylPREDNISolone SOD SUC 125 MG/2 ML VIAL IV SCH ×3 (04:23→20:31)
[2021-03-27 04:36] LABS: Calcium 8.2 MG/DL (8.5-10.1); Osmolality,Calculated 281.2 MOS/KG (273-304); Potassium 5.1 MMOL/L (3.5-5.1)
[2021-03-27 04:42] LABS: Band Neutrophils 3 % (0-10); Lymphocytes 1 % (20-55); Ovalocytes Slight; Platelet Estimate Adequate; Segmented Neutrophils 86 % (50-85); Total Cells Counted 100
[2021-03-27 06:37] LABS: ABG PCO2 17.8 MM HG (35-48)
[2021-03-27] MEDS: CHOLECALCIFEROL 1,000 UNIT TABLET PO SCH (08:11)
[2021-03-27] MEDS: BISOPROLOL 5 MG TABLET PO SCH (08:11)
[2021-03-27] MEDS: ASPIRIN EC 81 MG TABLET PO SCH (08:12)
[2021-03-27] MEDS: MONTELUKAST 10 MG TABLET PO SCH (08:12)
[2021-03-27] MEDS: FAMOTIDINE 8 MG/ML 50 ML/BOTTLE PER TUBE SCH (08:12)
[2021-03-27] MEDS: ASPIRIN CHEW 81 MG TABLET PO SCH (09:25)
[2021-03-27] MEDS: NOREPINEPHRINE 8 MG in SODIUM CHLORIDE 0.9% 242 ML IV PRN (09:44)
[2021-03-27] MEDS ORDERED: NICOTINE 21 MG/24 HR PATCH TRANSDERM PRN (09:53)
[2021-03-27] MEDS: AZITHROMYCIN INJ 500 MG in SODIUM CHLORIDE 0.9% 250 ML IV SCH (11:45)
[2021-03-27] MEDS: ENOXAPARIN 40 MG/0.4 ML SYRINGE SUBCUT SCH (11:45)
[2021-03-27] MEDS: MIDAZOLAM 100 MG in SODIUM CHLORIDE 0.9% 80 ML IV PRN (18:05)
[2021-03-27] MEDS: MIRTAZAPINE 15 MG TABLET PO SCH (20:31)
[2021-03-27] MEDS: ROSUVASTATIN 10 MG TABLET PO SCH (20:31)
[2021-03-27] MEDS: rOPINIRole 4 MG TABLET PO SCH (20:31)
[2021-03-28] MEDS: INSULIN LISPRO 100 UNIT/ML SUBCUT SCH ×5 (00:06→23:36)
[2021-03-28] MEDS: FAMOTIDINE 8 MG/ML 50 ML/BOTTLE PER TUBE SCH ×3 (00:06→20:25)
[2021-03-28] MEDS: ALBUTEROL/IPRATROPIUM 3 ML NEB RESP TX SCH ×4 (00:50→19:13)
[2021-03-28] MEDS: PIPERACILLIN/TAZOBACTAM 3,375 MG in SODIUM CHLORIDE 0.9% 100 ML IV SCH ×3 (03:40→17:56)
[2021-03-28] MEDS: methylPREDNISolone SOD SUC 125 MG/2 ML VIAL IV SCH ×3 (03:40→20:25)
[2021-03-28 03:44] LABS: Basophils % 0.1 % (0.0-0.8); Hematocrit 35.7 VOL% (42.0-52.0); Hemoglobin 11.6 GM/DL (14.0-18.0); Immature Granulocytes % 0.4 %; Immature Granulocytes Absolute 0.04 #; Lymphocytes # 0.3 10*3/uL (1.4-4.0); Lymphocytes % 3.2 % (21.2-54.2); Mean Corpuscular HGB Conc 32.5 GM/DL (32-36); Mean Corpuscular Volume 101.1 FL (87-102); Mean Platelet Volume 9.5 FL (9.6-12.0); Monocytes % 8.2 % (1.7-12.7); Neutrophils % 88.1 % (38.7-73.9); Platelet Count 233 T/CUMM (130-400); Red Blood Count 3.53 MC/CUMM (3.8-5.5); Red Cell Distribution Width 14.1 % (9.3-17.3); White Blood Count 9.3 T/CUMM (4-12)
[2021-03-28 03:58] LABS: Calcium 8.3 MG/DL (8.5-10.1); Osmolality,Calculated 279.2 MOS/KG (273-304)
[2021-03-28 04:08] LABS: Band Neutrophils 1 % (0-10); Lymphocytes 1 % (20-55); Platelet Estimate Normal; Segmented Neutrophils 91 % (50-85); Total Cells Counted 100
[2021-03-28 04:38] LABS: ABG Base Excess 4.6 MMOL/L (-2.5-2.5); ABG HCO3 31.7 MMOL/L (20-26); ABG Oxygen Saturation 95.6 % (95-100); ABG PCO2 59.1 MM HG (35-48); ABG PH 7.348 (7.35-7.45); ABG PO2 82.3 MM HG (80-95); ABG TCO2 33.6 MMOL/L (23-27); Allen Test Positive; Pt O2 Delivery Device Ventilator
[2021-03-28] MEDS: CHOLECALCIFEROL 1,000 UNIT TABLET PO SCH (08:01)
[2021-03-28] MEDS: ASPIRIN CHEW 81 MG TABLET PO SCH (08:01)
[2021-03-28] MEDS: BISOPROLOL 5 MG TABLET PO SCH (08:01)
[2021-03-28] MEDS: MONTELUKAST 10 MG TABLET PO SCH (08:01)
[2021-03-28] MEDS: ALBUTEROL 2.5 MG/3 ML NEB RESP TX PRN (09:03)
[2021-03-28] MEDS: MORPHINE 2 MG/1 ML SYRINGE IV PRN ×2 (09:22→12:54)
[2021-03-28] MEDS: LORazepam 2 MG/1 ML VIAL IV PRN ×3 (09:36→23:58)
[2021-03-28] MEDS ORDERED: AMINOPHYLLINE 250 MG in SODIUM CHLORIDE 0.9% 100 ML IV ONE (12:00)
[2021-03-28] MEDS: AZITHROMYCIN INJ 500 MG in SODIUM CHLORIDE 0.9% 250 ML IV SCH (12:22)
[2021-03-28] MEDS: ENOXAPARIN 40 MG/0.4 ML SYRINGE SUBCUT SCH (12:22)
[2021-03-28] MEDS: MIDAZOLAM 100 MG in SODIUM CHLORIDE 0.9% 80 ML IV PRN (13:05)
[2021-03-28] MEDS: AMINOPHYLLINE 500 MG in SODIUM CHLORIDE 0.9% 480 ML IV SCH (15:50)
[2021-03-28] MEDS: rOPINIRole 4 MG TABLET PO SCH (20:25)
[2021-03-28] MEDS: ROSUVASTATIN 10 MG TABLET PO SCH (20:25)
[2021-03-28] MEDS: MIRTAZAPINE 15 MG TABLET PO SCH (20:25)
[2021-03-29] MEDS: ALBUTEROL/IPRATROPIUM 3 ML NEB RESP TX SCH ×4 (00:25→19:32)
[2021-03-29 03:17] LABS: Hemoglobin 11.8 GM/DL (14.0-18.0); Immature Granulocytes % 0.5 %; Immature Granulocytes Absolute 0.05 #; Lymphocytes # 0.4 10*3/uL (1.4-4.0); Lymphocytes % 3.5 % (21.2-54.2); Mean Corpuscular HGB Conc 32.8 GM/DL (32-36); Mean Corpuscular Volume 101.1 FL (87-102); Mean Platelet Volume 9.3 FL (9.6-12.0); Monocytes % 7.6 % (1.7-12.7); Neutrophils % 88.4 % (38.7-73.9); Platelet Count 244 T/CUMM (130-400); Red Blood Count 3.56 MC/CUMM (3.8-5.5); Red Cell Distribution Width 14.2 % (9.3-17.3); White Blood Count 10.9 T/CUMM (4-12)
[2021-03-29] MEDS: LORazepam 2 MG/1 ML VIAL IV PRN (03:18)
[2021-03-29] MEDS: methylPREDNISolone SOD SUC 125 MG/2 ML VIAL IV SCH ×3 (03:19→21:35)
[2021-03-29] MEDS: PIPERACILLIN/TAZOBACTAM 3,375 MG in SODIUM CHLORIDE 0.9% 100 ML IV SCH ×3 (03:19→19:59)
[2021-03-29 03:35] LABS: Calcium 8.5 MG/DL (8.5-10.1); Osmolality,Calculated 284.8 MOS/KG (273-304); Potassium 4.8 MMOL/L (3.5-5.1)
[2021-03-29 03:38] LABS: PT Patient Result 10.9 SECS (10.5-12.0); Partial Thromboplastin Time 28.2 SECS (23.9-33.8)
[2021-03-29 03:40] LABS: Lymphocytes 2 % (20-55); Platelet Estimate Adequate; Segmented Neutrophils 93 % (50-85); Total Cells Counted 100
[2021-03-29 03:41] LABS: Hypochromasia 1+; Microcytosis 1+
[2021-03-29 04:22] LABS: ABG Base Excess 6.2 MMOL/L (-2.5-2.5); ABG Oxygen Saturation 96.4 % (95-100); ABG PCO2 67.2 MM HG (35-48); ABG PH 7.321 (7.35-7.45); ABG PO2 86.2 MM HG (80-95); ABG TCO2 31.2 MMOL/L (23-27); Allen Test Positive; Pt O2 Delivery Device Ventilator
[2021-03-29] MEDS: MORPHINE 2 MG/1 ML SYRINGE IV PRN ×2 (04:25→10:35)
[2021-03-29] MEDS: NOREPINEPHRINE 8 MG in SODIUM CHLORIDE 0.9% 242 ML IV PRN (05:45)
[2021-03-29] MEDS: INSULIN LISPRO 100 UNIT/ML SUBCUT SCH ×3 (06:07→20:00)
[2021-03-29] MEDS: BISOPROLOL 5 MG TABLET PO SCH (08:21)
[2021-03-29] MEDS: CHOLECALCIFEROL 1,000 UNIT TABLET PO SCH (08:22)
[2021-03-29] MEDS: MONTELUKAST 10 MG TABLET PO SCH (08:22)
[2021-03-29] MEDS: FAMOTIDINE 8 MG/ML 50 ML/BOTTLE PER TUBE SCH ×2 (08:22→21:32)
[2021-03-29] MEDS: ASPIRIN CHEW 81 MG TABLET PO SCH (08:22)
[2021-03-29] MEDS: MIDAZOLAM 100 MG in SODIUM CHLORIDE 0.9% 80 ML IV PRN (10:50)
[2021-03-29] MEDS: ENOXAPARIN 40 MG/0.4 ML SYRINGE SUBCUT SCH (15:15)
[2021-03-29] MEDS: AMINOPHYLLINE 500 MG in SODIUM CHLORIDE 0.9% 480 ML IV SCH (20:45)
[2021-03-29] MEDS: ROSUVASTATIN 10 MG TABLET PO SCH (21:30)
[2021-03-29] MEDS: MIRTAZAPINE 15 MG TABLET PO SCH (21:30)
[2021-03-29] MEDS: rOPINIRole 4 MG TABLET PO SCH (21:30)
[2021-03-30] MEDS: ALBUTEROL/IPRATROPIUM 3 ML NEB RESP TX SCH ×4 (01:06→18:17)
[2021-03-30] MEDS: PIPERACILLIN/TAZOBACTAM 3,375 MG in SODIUM CHLORIDE 0.9% 100 ML IV SCH ×3 (01:15→18:07)
[2021-03-30 03:26] LABS: ABG Base Excess 8.8 MMOL/L (-2.5-2.5); ABG HCO3 32.6 MMOL/L (20-26); ABG Oxygen Saturation 97.2 % (95-100); ABG PCO2 62.7 MM HG (35-48); ABG PH 7.373 (7.35-7.45); ABG PO2 92.9 MM HG (80-95); ABG TCO2 32.6 MMOL/L (23-27); Allen Test Positive; Pt O2 Delivery Device Ventilator
[2021-03-30] MEDS: methylPREDNISolone SOD SUC 125 MG/2 ML VIAL IV SCH ×3 (04:08→20:18)
[2021-03-30 05:00] LABS: Basophils % 0.1 % (0.0-0.8); Hemoglobin 11.5 GM/DL (14.0-18.0); Immature Granulocytes % 0.6 %; Immature Granulocytes Absolute 0.07 #; Lymphocytes # 0.5 10*3/uL (1.4-4.0); Lymphocytes % 3.7 % (21.2-54.2); Mean Corpuscular HGB Conc 32.9 GM/DL (32-36); Mean Corpuscular Volume 100.9 FL (87-102); Mean Platelet Volume 9.5 FL (9.6-12.0); Monocytes % 6.6 % (1.7-12.7); Platelet Count 261 T/CUMM (130-400); Red Blood Count 3.47 MC/CUMM (3.8-5.5); Red Cell Distribution Width 14.1 % (9.3-17.3); White Blood Count 12.6 T/CUMM (4-12)
[2021-03-30 05:21] LABS: Lymphocytes 4 % (20-55); Segmented Neutrophils 92 % (50-85)
[2021-03-30 05:22] LABS: Platelet Estimate Normal; Total Cells Counted 100
[2021-03-30 05:33] LABS: Calcium 8.8 MG/DL (8.5-10.1); Osmolality,Calculated 290.5 MOS/KG (273-304); Potassium 4.3 MMOL/L (3.5-5.1)
[2021-03-30] MEDS: INSULIN LISPRO 100 UNIT/ML SUBCUT SCH ×4 (05:36→18:41)
[2021-03-30] MEDS: AMINOPHYLLINE 500 MG in SODIUM CHLORIDE 0.9% 480 ML IV SCH (05:37)
[2021-03-30] MEDS: MIDAZOLAM 100 MG in SODIUM CHLORIDE 0.9% 80 ML IV PRN (06:10)
[2021-03-30] MEDS: CHOLECALCIFEROL 1,000 UNIT TABLET PO SCH (08:19)
[2021-03-30] MEDS: MONTELUKAST 10 MG TABLET PO SCH (08:19)
[2021-03-30] MEDS: ASPIRIN CHEW 81 MG TABLET PO SCH (08:19)
[2021-03-30] MEDS: BISOPROLOL 5 MG TABLET PO SCH (08:19)
[2021-03-30] MEDS: FAMOTIDINE 8 MG/ML 50 ML/BOTTLE PER TUBE SCH ×2 (08:23→21:26)
[2021-03-30] MEDS: LORazepam 2 MG/1 ML VIAL IV PRN (08:58)
[2021-03-30] MEDS: ENOXAPARIN 60 MG/0.6 ML SYRINGE SUBCUT SCH ×2 (09:36→21:27)
[2021-03-30] MEDS: ALBUTEROL 0.4 MG/ML 30 ML/BOTTLE PER TUBE SCH ×2 (15:08→21:30)
[2021-03-30] MEDS: ROSUVASTATIN 10 MG TABLET PO SCH (21:25)
[2021-03-30] MEDS: MIRTAZAPINE 15 MG TABLET PO SCH (21:26)
[2021-03-30] MEDS: rOPINIRole 4 MG TABLET PO SCH (21:28)
[2021-03-31] MEDS: ALBUTEROL/IPRATROPIUM 3 ML NEB RESP TX SCH ×4 (00:11→19:40)
[2021-03-31] MEDS: INSULIN LISPRO 100 UNIT/ML SUBCUT SCH ×5 (00:45→23:45)
[2021-03-31] MEDS: PIPERACILLIN/TAZOBACTAM 3,375 MG in SODIUM CHLORIDE 0.9% 100 ML IV SCH ×3 (01:51→17:59)
[2021-03-31 02:21] LABS: ABG HCO3 32.8 MMOL/L (20-26); ABG Oxygen Saturation 99.4 % (95-100); ABG PCO2 44.2 MM HG (35-48); ABG PH 7.488 (7.35-7.45); ABG TCO2 29.6 MMOL/L (23-27)
[2021-03-31 05:15] LABS: Basophils % 0.1 % (0.0-0.8); Hematocrit 35.6 VOL% (42.0-52.0); Hemoglobin 11.7 GM/DL (14.0-18.0); Immature Granulocytes % 0.5 %; Immature Granulocytes Absolute 0.05 #; Lymphocytes # 0.5 10*3/uL (1.4-4.0); Lymphocytes % 4.5 % (21.2-54.2); Mean Corpuscular HGB Conc 32.9 GM/DL (32-36); Mean Corpuscular Volume 100.3 FL (87-102); Mean Platelet Volume 9.5 FL (9.6-12.0); Monocytes % 10.7 % (1.7-12.7); Neutrophils % 84.2 % (38.7-73.9); Platelet Count 263 T/CUMM (130-400); Red Blood Count 3.55 MC/CUMM (3.8-5.5); Red Cell Distribution Width 13.8 % (9.3-17.3); White Blood Count 10.8 T/CUMM (4-12)
[2021-03-31] MEDS: methylPREDNISolone SOD SUC 125 MG/2 ML VIAL IV SCH ×3 (05:17→21:04)
[2021-03-31] MEDS: ALBUTEROL 0.4 MG/ML 30 ML/BOTTLE PER TUBE SCH ×3 (05:19→22:18)
[2021-03-31 05:27] LABS: Calcium 8.5 MG/DL (8.5-10.1); Osmolality,Calculated 289.7 MOS/KG (273-304)
[2021-03-31] MEDS: AMINOPHYLLINE 500 MG in SODIUM CHLORIDE 0.9% 480 ML IV SCH ×2 (05:36→15:30)
[2021-03-31 05:37] LABS: Hypochromasia 1+; Lymphocytes 6 % (20-55); Microcytosis 1+; Platelet Estimate Adequate; Segmented Neutrophils 85 % (50-85); Total Cells Counted 100
[2021-03-31] MEDS: LORazepam 2 MG/1 ML VIAL IV PRN ×4 (07:33→22:27)
[2021-03-31] MEDS: MONTELUKAST 10 MG TABLET PO SCH (08:44)
[2021-03-31] MEDS: CHOLECALCIFEROL 1,000 UNIT TABLET PO SCH (08:44)
[2021-03-31] MEDS: ENOXAPARIN 60 MG/0.6 ML SYRINGE SUBCUT SCH ×2 (08:44→21:05)
[2021-03-31] MEDS: ASPIRIN CHEW 81 MG TABLET PO SCH (08:44)
[2021-03-31] MEDS: BISOPROLOL 5 MG TABLET PO SCH (08:44)
[2021-03-31] MEDS: FAMOTIDINE 8 MG/ML 50 ML/BOTTLE PER TUBE SCH ×2 (08:44→21:05)
[2021-03-31] MEDS: MIDAZOLAM 100 MG in SODIUM CHLORIDE 0.9% 80 ML IV PRN (16:12)
[2021-03-31] MEDS: rOPINIRole 4 MG TABLET PO SCH (21:04)
[2021-03-31] MEDS: ROSUVASTATIN 10 MG TABLET PO SCH (21:04)
[2021-03-31] MEDS: MIRTAZAPINE 15 MG TABLET PO SCH (21:05)
[2021-03-31] MEDS: MORPHINE 2 MG/1 ML SYRINGE IV PRN (22:25)
[2021-04-01] MEDS: ALBUTEROL/IPRATROPIUM 3 ML NEB RESP TX SCH ×4 (01:08→19:21)
[2021-04-01] MEDS: PIPERACILLIN/TAZOBACTAM 3,375 MG in SODIUM CHLORIDE 0.9% 100 ML IV SCH ×3 (02:40→17:53)
[2021-04-01 04:30] LABS: ABG Base Excess 8.4 MMOL/L (-2.5-2.5); ABG HCO3 32.2 MMOL/L (20-26); ABG Oxygen Saturation 98.5 % (95-100); ABG PCO2 49.3 MM HG (35-48); ABG PH 7.446 (7.35-7.45); ABG TCO2 30.1 MMOL/L (23-27); Allen Test Positive; Pt O2 Delivery Device Ventilator
[2021-04-01] MEDS: MORPHINE 2 MG/1 ML SYRINGE IV PRN ×3 (04:41→22:39)
[2021-04-01] MEDS: methylPREDNISolone SOD SUC 125 MG/2 ML VIAL IV SCH ×3 (04:43→17:04)
[2021-04-01 04:56] LABS: Basophils % 0.1 % (0.0-0.8); Hematocrit 33.1 VOL% (42.0-52.0); Hemoglobin 11.4 GM/DL (14.0-18.0); Immature Granulocytes % 0.8 %; Immature Granulocytes Absolute 0.09 #; Lymphocytes # 0.4 10*3/uL (1.4-4.0); Lymphocytes % 3.5 % (21.2-54.2); Mean Corpuscular HGB Conc 34.4 GM/DL (32-36); Mean Corpuscular Volume 96.8 FL (87-102); Mean Platelet Volume 9.7 FL (9.6-12.0); Monocytes % 9.6 % (1.7-12.7); Platelet Count 256 T/CUMM (130-400); Red Blood Count 3.42 MC/CUMM (3.8-5.5); Red Cell Distribution Width 13.7 % (9.3-17.3); White Blood Count 11.7 T/CUMM (4-12)
[2021-04-01 04:58] LABS: Calcium 8.4 MG/DL (8.5-10.1); Osmolality,Calculated 290.7 MOS/KG (273-304); Potassium 4.3 MMOL/L (3.5-5.1)
[2021-04-01] MEDS: AMINOPHYLLINE 500 MG in SODIUM CHLORIDE 0.9% 480 ML IV SCH (05:06)
[2021-04-01] MEDS: INSULIN LISPRO 100 UNIT/ML SUBCUT SCH ×4 (05:41→23:16)
[2021-04-01] MEDS: ALBUTEROL 0.4 MG/ML 30 ML/BOTTLE PER TUBE SCH ×3 (05:41→21:26)
[2021-04-01 06:20] LABS: Lymphocytes 4 % (20-55); Platelet Estimate Normal; Segmented Neutrophils 91 % (50-85); Total Cells Counted 100
[2021-04-01 06:25] LABS: Macrocytosis 1+
[2021-04-01 06:26] LABS: Hypochromasia Slight; Target Cells Slight
[2021-04-01] MEDS: BISOPROLOL 5 MG TABLET PO SCH (08:40)
[2021-04-01] MEDS: ENOXAPARIN 60 MG/0.6 ML SYRINGE SUBCUT SCH ×2 (08:40→20:17)
[2021-04-01] MEDS: FAMOTIDINE 8 MG/ML 50 ML/BOTTLE PER TUBE SCH ×2 (08:40→20:18)
[2021-04-01] MEDS: CHOLECALCIFEROL 1,000 UNIT TABLET PO SCH (08:40)
[2021-04-01] MEDS: MONTELUKAST 10 MG TABLET PO SCH (08:40)
[2021-04-01] MEDS: ASPIRIN CHEW 81 MG TABLET PO SCH (08:40)
[2021-04-01] MEDS: MIDAZOLAM 100 MG in SODIUM CHLORIDE 0.9% 80 ML IV PRN (15:04)
[2021-04-01] MEDS ORDERED: methylPREDNISolone SOD SUC 40 MG/1 ML VIAL ONE (17:05)
[2021-04-01] MEDS: ROSUVASTATIN 10 MG TABLET PO SCH (20:17)
[2021-04-01] MEDS: rOPINIRole 4 MG TABLET PO SCH (20:17)
[2021-04-01] MEDS: MIRTAZAPINE 15 MG TABLET PO SCH (20:17)
[2021-04-01] MEDS: methylPREDNISolone SOD SUC 40 MG/1 ML VIAL IV SCH (23:31)
[2021-04-02] MEDS: ALBUTEROL/IPRATROPIUM 3 ML NEB RESP TX SCH ×4 (01:31→19:55)
[2021-04-02] MEDS: PIPERACILLIN/TAZOBACTAM 3,375 MG in SODIUM CHLORIDE 0.9% 100 ML IV SCH ×3 (02:34→17:11)
[2021-04-02] MEDS: MORPHINE 2 MG/1 ML SYRINGE IV PRN ×3 (04:03→12:51)
[2021-04-02 04:29] LABS: Allen Test Positive; Pt O2 Delivery Device Ventilator
[2021-04-02 04:34] LABS: Basophils % 0.1 % (0.0-0.8); Hematocrit 32.1 VOL% (42.0-52.0); Hemoglobin 10.9 GM/DL (14.0-18.0); Immature Granulocytes % 0.8 %; Lymphocytes # 0.5 10*3/uL (1.4-4.0); Lymphocytes % 3.4 % (21.2-54.2); Mean Platelet Volume 9.9 FL (9.6-12.0); Monocytes % 8.2 % (1.7-12.7); Neutrophils % 87.5 % (38.7-73.9); Platelet Count 249 T/CUMM (130-400); Red Blood Count 3.31 MC/CUMM (3.8-5.5); Red Cell Distribution Width 13.6 % (9.3-17.3); White Blood Count 13.2 T/CUMM (4-12)
[2021-04-02 04:37] LABS: Calcium 8.2 MG/DL (8.5-10.1); Osmolality,Calculated 285.8 MOS/KG (273-304); Potassium 4.5 MMOL/L (3.5-5.1)
[2021-04-02 04:44] LABS: ABG Base Excess 8.1 MMOL/L (-2.5-2.5); ABG Oxygen Saturation 94.9 % (95-100); ABG PCO2 53.3 MM HG (35-48); ABG PH 7.422 (7.35-7.45); ABG PO2 76.9 MM HG (80-95); ABG TCO2 35.6 MMOL/L (23-27)
[2021-04-02 05:27] LABS: Lymphocytes 2 % (20-55); Microcytosis 1+; Platelet Estimate Adequate; Segmented Neutrophils 92 % (50-85); Total Cells Counted 100
[2021-04-02] MEDS: AMINOPHYLLINE 500 MG in SODIUM CHLORIDE 0.9% 480 ML IV SCH ×2 (05:39→15:16)
[2021-04-02] MEDS: INSULIN LISPRO 100 UNIT/ML SUBCUT SCH ×3 (05:40→17:24)
[2021-04-02] MEDS: ALBUTEROL 0.4 MG/ML 30 ML/BOTTLE PER TUBE SCH ×3 (05:41→22:35)
[2021-04-02] MEDS ORDERED: FUROSEMIDE 40 MG/4 ML VIAL IV ONE (07:56)
[2021-04-02] MEDS: CHOLECALCIFEROL 1,000 UNIT TABLET PO SCH (08:39)
[2021-04-02] MEDS: ASPIRIN CHEW 81 MG TABLET PO SCH (08:39)
[2021-04-02] MEDS: BISOPROLOL 5 MG TABLET PO SCH (08:40)
[2021-04-02] MEDS: MONTELUKAST 10 MG TABLET PO SCH (08:40)
[2021-04-02] MEDS: methylPREDNISolone SOD SUC 40 MG/1 ML VIAL IV SCH ×2 (08:41→17:10)
[2021-04-02] MEDS: ENOXAPARIN 60 MG/0.6 ML SYRINGE SUBCUT SCH ×2 (08:42→21:44)
[2021-04-02] MEDS: FAMOTIDINE 8 MG/ML 50 ML/BOTTLE PER TUBE SCH ×2 (08:44→21:44)
[2021-04-02] MEDS: MIDAZOLAM 100 MG in SODIUM CHLORIDE 0.9% 80 ML IV PRN (13:12)
[2021-04-02] MEDS: MIRTAZAPINE 15 MG TABLET PO SCH (21:44)
[2021-04-02] MEDS: ROSUVASTATIN 10 MG TABLET PO SCH (21:44)
[2021-04-02] MEDS: rOPINIRole 4 MG TABLET PO SCH (21:44)
[2021-04-03] MEDS: methylPREDNISolone SOD SUC 40 MG/1 ML VIAL IV SCH ×4 (00:05→23:30)
[2021-04-03] MEDS: ALBUTEROL/IPRATROPIUM 3 ML NEB RESP TX SCH ×4 (00:30→18:00)
[2021-04-03] MEDS: INSULIN LISPRO 100 UNIT/ML SUBCUT SCH ×4 (01:15→18:32)
[2021-04-03] MEDS: PIPERACILLIN/TAZOBACTAM 3,375 MG in SODIUM CHLORIDE 0.9% 100 ML IV SCH ×2 (01:31→09:08)
[2021-04-03] MEDS: MORPHINE 2 MG/1 ML SYRINGE IV PRN ×3 (03:23→21:36)
[2021-04-03 03:53] LABS: Basophils % 0.1 % (0.0-0.8); Hematocrit 30.7 VOL% (42.0-52.0); Hemoglobin 10.5 GM/DL (14.0-18.0); Immature Granulocytes % 0.8 %; Immature Granulocytes Absolute 0.15 #; Lymphocytes # 0.5 10*3/uL (1.4-4.0); Lymphocytes % 2.9 % (21.2-54.2); Mean Corpuscular HGB Conc 34.2 GM/DL (32-36); Mean Corpuscular Volume 97.5 FL (87-102); Monocytes % 7.3 % (1.7-12.7); Neutrophils % 88.9 % (38.7-73.9); Platelet Count 257 T/CUMM (130-400); Red Blood Count 3.15 MC/CUMM (3.8-5.5); Red Cell Distribution Width 13.5 % (9.3-17.3)
[2021-04-03 03:58] LABS: Calcium 8.3 MG/DL (8.5-10.1); Potassium 4.1 MMOL/L (3.5-5.1)
[2021-04-03 04:15] LABS: Hypochromasia 1+; Lymphocytes 3 % (20-55); Segmented Neutrophils 92 % (50-85); Total Cells Counted 100
[2021-04-03 04:16] LABS: Microcytosis 1+
[2021-04-03 04:17] LABS: Platelet Estimate Normal
[2021-04-03 04:35] LABS: Allen Test Positive; Pt O2 Delivery Device Ventilator
[2021-04-03 04:52] LABS: ABG Base Excess 8.4 MMOL/L (-2.5-2.5); ABG HCO3 34.4 MMOL/L (20-26); ABG Oxygen Saturation 97.4 % (95-100); ABG PCO2 54.7 MM HG (35-48); ABG PH 7.416 (7.35-7.45); ABG PO2 105.2 MM HG (80-95)
[2021-04-03] MEDS: ALBUTEROL 0.4 MG/ML 30 ML/BOTTLE PER TUBE SCH ×3 (06:20→22:35)
[2021-04-03] MEDS: ASPIRIN CHEW 81 MG TABLET PO SCH (09:05)
[2021-04-03] MEDS: CHOLECALCIFEROL 1,000 UNIT TABLET PO SCH (09:05)
[2021-04-03] MEDS: MONTELUKAST 10 MG TABLET PO SCH (09:05)
[2021-04-03] MEDS: ENOXAPARIN 60 MG/0.6 ML SYRINGE SUBCUT SCH ×2 (09:06→21:36)
[2021-04-03] MEDS: BISOPROLOL 5 MG TABLET PO SCH (09:07)
[2021-04-03] MEDS: FAMOTIDINE 8 MG/ML 50 ML/BOTTLE PER TUBE SCH ×2 (09:07→21:37)
[2021-04-03] MEDS: MEROPENEM 500 MG in SODIUM CHLORIDE 0.9% 100 ML IV SCH ×3 (12:30→22:00)
[2021-04-03] MEDS: ALPRAZolam 0.25 MG TABLET PO PRN (12:30)
[2021-04-03] MEDS: MIDAZOLAM 100 MG in SODIUM CHLORIDE 0.9% 80 ML IV PRN (15:00)
[2021-04-03] MEDS: AMINOPHYLLINE 500 MG in SODIUM CHLORIDE 0.9% 480 ML IV SCH (17:00)
[2021-04-03] MEDS: ROSUVASTATIN 10 MG TABLET PO SCH (21:35)
[2021-04-03] MEDS: MIRTAZAPINE 15 MG TABLET PO SCH (21:35)
[2021-04-03] MEDS: rOPINIRole 4 MG TABLET PO SCH (21:35)
[2021-04-04] MEDS: ALBUTEROL/IPRATROPIUM 3 ML NEB RESP TX SCH ×4 (00:15→18:00)
[2021-04-04] MEDS: INSULIN LISPRO 100 UNIT/ML SUBCUT SCH ×5 (01:35→23:57)
[2021-04-04] MEDS: MORPHINE 2 MG/1 ML SYRINGE IV PRN ×5 (02:50→20:25)
[2021-04-04 03:02] LABS: ABG Base Excess 8.7 MMOL/L (-2.5-2.5); ABG HCO3 32.4 MMOL/L (20-26); ABG Oxygen Saturation 97.7 % (95-100); ABG PCO2 50.1 MM HG (35-48); ABG PH 7.443 (7.35-7.45); ABG PO2 93.7 MM HG (80-95); ABG TCO2 30.6 MMOL/L (23-27)
[2021-04-04 03:39] LABS: Basophils % 0.1 % (0.0-0.8); Hemoglobin 10.6 GM/DL (14.0-18.0); Immature Granulocytes % 0.8 %; Immature Granulocytes Absolute 0.14 #; Lymphocytes # 0.4 10*3/uL (1.4-4.0); Lymphocytes % 2.1 % (21.2-54.2); Mean Corpuscular HGB Conc 34.2 GM/DL (32-36); Mean Corpuscular Volume 96.9 FL (87-102); Mean Platelet Volume 9.7 FL (9.6-12.0); Monocytes % 5.6 % (1.7-12.7); Neutrophils % 91.4 % (38.7-73.9); Platelet Count 239 T/CUMM (130-400); Red Cell Distribution Width 13.2 % (9.3-17.3); White Blood Count 17.3 T/CUMM (4-12)
[2021-04-04 03:47] LABS: Calcium 8.2 MG/DL (8.5-10.1); Osmolality,Calculated 281.7 MOS/KG (273-304); Potassium 4.3 MMOL/L (3.5-5.1)
[2021-04-04 04:18] LABS: Hypochromasia 1+; Lymphocytes 4 % (20-55); Microcytosis 1+; Platelet Estimate Adequate; Segmented Neutrophils 92 % (50-85); Total Cells Counted 100
[2021-04-04] MEDS: MEROPENEM 500 MG in SODIUM CHLORIDE 0.9% 100 ML IV SCH ×4 (04:31→22:03)
[2021-04-04] MEDS: AMINOPHYLLINE 500 MG in SODIUM CHLORIDE 0.9% 480 ML IV SCH (05:45)
[2021-04-04] MEDS: ALBUTEROL 0.4 MG/ML 30 ML/BOTTLE PER TUBE SCH ×3 (05:52→22:03)
[2021-04-04] MEDS: ASPIRIN CHEW 81 MG TABLET PO SCH (08:18)
[2021-04-04] MEDS: NICOTINE 21 MG/24 HR PATCH TRANSDERM SCH (08:18)
[2021-04-04] MEDS: methylPREDNISolone SOD SUC 40 MG/1 ML VIAL IV SCH ×3 (08:18→23:55)
[2021-04-04] MEDS: BISOPROLOL 5 MG TABLET PO SCH (08:19)
[2021-04-04] MEDS: FAMOTIDINE 8 MG/ML 50 ML/BOTTLE PER TUBE SCH ×2 (08:19→21:18)
[2021-04-04] MEDS: ENOXAPARIN 60 MG/0.6 ML SYRINGE SUBCUT SCH ×2 (08:19→21:18)
[2021-04-04] MEDS: CHOLECALCIFEROL 1,000 UNIT TABLET PO SCH (08:19)
[2021-04-04] MEDS: MONTELUKAST 10 MG TABLET PO SCH (08:19)
[2021-04-04] MEDS: MIDAZOLAM 100 MG in SODIUM CHLORIDE 0.9% 80 ML IV PRN (11:24)
[2021-04-04] MEDS: ROSUVASTATIN 10 MG TABLET PO SCH (21:17)
[2021-04-04] MEDS: rOPINIRole 4 MG TABLET PO SCH (21:17)
[2021-04-04] MEDS: MIRTAZAPINE 15 MG TABLET PO SCH (21:17)
[2021-04-05] MEDS: ALBUTEROL/IPRATROPIUM 3 ML NEB RESP TX SCH ×4 (00:39→19:53)
[2021-04-05 04:11] LABS: ABG Base Excess 8.3 MMOL/L (-2.5-2.5); ABG Oxygen Saturation 95.6 % (95-100); ABG PCO2 51.8 MM HG (35-48); ABG PH 7.426 (7.35-7.45); ABG PO2 77.6 MM HG (80-95); ABG TCO2 30.8 MMOL/L (23-27)
[2021-04-05 04:20] LABS: Basophils % 0.1 % (0.0-0.8); Hematocrit 30.5 VOL% (42.0-52.0); Hemoglobin 10.6 GM/DL (14.0-18.0); Immature Granulocytes % 0.7 %; Immature Granulocytes Absolute 0.13 #; Lymphocytes # 0.4 10*3/uL (1.4-4.0); Lymphocytes % 2.2 % (21.2-54.2); Mean Corpuscular HGB Conc 34.8 GM/DL (32-36); Mean Corpuscular Volume 96.8 FL (87-102); Mean Platelet Volume 10.3 FL (9.6-12.0); Monocytes % 3.4 % (1.7-12.7); Neutrophils % 93.6 % (38.7-73.9); Platelet Count 225 T/CUMM (130-400); Red Blood Count 3.15 MC/CUMM (3.8-5.5); Red Cell Distribution Width 13.2 % (9.3-17.3); White Blood Count 17.9 T/CUMM (4-12)
[2021-04-05 04:40] LABS: Hypochromasia 1+; Lymphocytes 2 % (20-55); Microcytosis 1+; Ovalocytes Slight; Platelet Estimate Normal; Segmented Neutrophils 93 % (50-85); Total Cells Counted 100
[2021-04-05 04:44] LABS: Osmolality,Calculated 277.2 MOS/KG (273-304); Potassium 4.4 MMOL/L (3.5-5.1)
[2021-04-05] MEDS: AMINOPHYLLINE 500 MG in SODIUM CHLORIDE 0.9% 480 ML IV SCH ×2 (04:45→05:14)
[2021-04-05] MEDS: MORPHINE 2 MG/1 ML SYRINGE IV PRN ×4 (04:48→20:45)
[2021-04-05] MEDS: MEROPENEM 500 MG in SODIUM CHLORIDE 0.9% 100 ML IV SCH ×4 (05:15→21:30)
[2021-04-05] MEDS: INSULIN LISPRO 100 UNIT/ML SUBCUT SCH ×5 (06:09→20:49)
[2021-04-05] MEDS: ALBUTEROL 0.4 MG/ML 30 ML/BOTTLE PER TUBE SCH ×3 (06:10→22:13)
[2021-04-05] MEDS: methylPREDNISolone SOD SUC 40 MG/1 ML VIAL IV SCH ×3 (07:39→22:30)
[2021-04-05] MEDS: NICOTINE 21 MG/24 HR PATCH TRANSDERM SCH (08:44)
[2021-04-05] MEDS: ENOXAPARIN 60 MG/0.6 ML SYRINGE SUBCUT SCH ×2 (08:44→20:49)
[2021-04-05] MEDS: CHOLECALCIFEROL 1,000 UNIT TABLET PO SCH (08:45)
[2021-04-05] MEDS: MONTELUKAST 10 MG TABLET PO SCH (08:45)
[2021-04-05] MEDS: ASPIRIN CHEW 81 MG TABLET PO SCH (08:45)
[2021-04-05] MEDS: BISOPROLOL 5 MG TABLET PO SCH (08:45)
[2021-04-05] MEDS: MIDAZOLAM 100 MG in SODIUM CHLORIDE 0.9% 80 ML IV PRN (09:30)
[2021-04-05] MEDS: FAMOTIDINE 8 MG/ML 50 ML/BOTTLE PER TUBE SCH ×2 (10:55→20:49)
[2021-04-05] MEDS: ROSUVASTATIN 10 MG TABLET PO SCH (20:48)
[2021-04-05] MEDS: rOPINIRole 4 MG TABLET PO SCH (20:49)
[2021-04-05] MEDS: MIRTAZAPINE 15 MG TABLET PO SCH (20:49)
[2021-04-06] MEDS: ALBUTEROL/IPRATROPIUM 3 ML NEB RESP TX SCH ×4 (00:30→19:46)
[2021-04-06] MEDS: MIDAZOLAM 100 MG in SODIUM CHLORIDE 0.9% 80 ML IV PRN (02:03)
[2021-04-06] MEDS: MEROPENEM 500 MG in SODIUM CHLORIDE 0.9% 100 ML IV SCH ×4 (04:10→21:30)
[2021-04-06 04:40] LABS: Basophils % 0.1 % (0.0-0.8); Hematocrit 31.6 VOL% (42.0-52.0); Hemoglobin 10.7 GM/DL (14.0-18.0); Immature Granulocytes % 0.8 %; Immature Granulocytes Absolute 0.13 #; Lymphocytes # 0.5 10*3/uL (1.4-4.0); Lymphocytes % 3.2 % (21.2-54.2); Mean Corpuscular HGB Conc 33.9 GM/DL (32-36); Mean Platelet Volume 10.1 FL (9.6-12.0); Monocytes % 2.8 % (1.7-12.7); Neutrophils % 93.1 % (38.7-73.9); Platelet Count 224 T/CUMM (130-400); Red Blood Count 3.29 MC/CUMM (3.8-5.5); Red Cell Distribution Width 13.1 % (9.3-17.3); White Blood Count 17.1 T/CUMM (4-12)
[2021-04-06 04:51] LABS: ABG Base Excess 7.8 MMOL/L (-2.5-2.5); ABG HCO3 31.6 MMOL/L (20-26); ABG Oxygen Saturation 97.2 % (95-100); ABG PH 7.453 (7.35-7.45); ABG PO2 84.7 MM HG (80-95); ABG TCO2 29.5 MMOL/L (23-27); Allen Test Positive; Pt O2 Delivery Device Ventilator
[2021-04-06 04:52] LABS: Calcium 8.3 MG/DL (8.5-10.1); Osmolality,Calculated 272.4 MOS/KG (273-304); Potassium 4.5 MMOL/L (3.5-5.1)
[2021-04-06 05:03] LABS: Lymphocytes 3 % (20-55); Segmented Neutrophils 96 % (50-85); Total Cells Counted 100
[2021-04-06 05:04] LABS: Hypochromasia 1+; Microcytosis 1+; Platelet Estimate Normal
[2021-04-06] MEDS: ALBUTEROL 0.4 MG/ML 30 ML/BOTTLE PER TUBE SCH ×3 (05:48→22:37)
[2021-04-06] MEDS: MORPHINE 2 MG/1 ML SYRINGE IV PRN ×4 (07:28→23:25)
[2021-04-06] MEDS: methylPREDNISolone SOD SUC 40 MG/1 ML VIAL IV SCH (08:01)
[2021-04-06] MEDS: ASPIRIN CHEW 81 MG TABLET PO SCH (08:02)
[2021-04-06] MEDS: NICOTINE 21 MG/24 HR PATCH TRANSDERM SCH (08:02)
[2021-04-06] MEDS: CHOLECALCIFEROL 1,000 UNIT TABLET PO SCH (08:02)
[2021-04-06] MEDS: FAMOTIDINE 8 MG/ML 50 ML/BOTTLE PER TUBE SCH ×2 (08:03→20:19)
[2021-04-06] MEDS: MONTELUKAST 10 MG TABLET PO SCH (08:03)
[2021-04-06] MEDS: ENOXAPARIN 60 MG/0.6 ML SYRINGE SUBCUT SCH ×2 (08:04→20:19)
[2021-04-06] MEDS: ALPRAZolam 0.25 MG TABLET PO PRN (08:04)
[2021-04-06] MEDS: INSULIN LISPRO 100 UNIT/ML SUBCUT SCH ×4 (08:38→20:19)
[2021-04-06] MEDS: ALBUTEROL 2.5 MG/3 ML NEB RESP TX PRN (09:25)
[2021-04-06] MEDS: AMINOPHYLLINE 500 MG in SODIUM CHLORIDE 0.9% 480 ML IV SCH ×2 (09:27→14:08)
[2021-04-06] MEDS: BISOPROLOL 5 MG TABLET PO SCH (09:27)
[2021-04-06] MEDS ORDERED: DORNASE ALFA 2.5 MG/2.5 ML VIAL RESP TX SCH (10:00)
[2021-04-06] MEDS: DORNASE ALFA 2.5 MG/2.5 ML VIAL RESP TX SCH ×2 (10:05→19:46)
[2021-04-06] MEDS ORDERED: DORNASE ALFA 2.5 MG/2.5 ML VIAL ONE (10:09)
[2021-04-06] MEDS: methylPREDNISolone SOD SUC 125 MG/2 ML VIAL IV SCH ×2 (10:09→17:24)
[2021-04-06] MEDS: LORazepam 2 MG/1 ML VIAL IV PRN ×2 (10:13→23:25)
[2021-04-06 10:54] LABS: Allen Test Positive; Pt O2 Delivery Device BIPAP
[2021-04-06 10:55] LABS: ABG Base Excess 5.8 MMOL/L (-2.5-2.5); ABG HCO3 29.5 MMOL/L (20-26); ABG Oxygen Saturation 92.6 % (95-100); ABG PCO2 55.5 MM HG (35-48); ABG PH 7.378 (7.35-7.45); ABG PO2 68.1 MM HG (80-95); ABG TCO2 28.8 MMOL/L (23-27)
[2021-04-06] MEDS: rOPINIRole 4 MG TABLET PO SCH (20:19)
[2021-04-06] MEDS: MIRTAZAPINE 15 MG TABLET PO SCH (20:19)
[2021-04-06] MEDS: ZINC OXIDE PASTE 113 GM TUBE TOP SCH (20:19)
[2021-04-06] MEDS: ROSUVASTATIN 10 MG TABLET PO SCH (20:19)
[2021-04-07] MEDS: ALBUTEROL/IPRATROPIUM 3 ML NEB RESP TX SCH ×4 (00:14→18:01)
[2021-04-07] MEDS: methylPREDNISolone SOD SUC 125 MG/2 ML VIAL IV SCH ×3 (01:55→17:30)
[2021-04-07] MEDS: MEROPENEM 500 MG in SODIUM CHLORIDE 0.9% 100 ML IV SCH ×4 (05:13→21:53)
[2021-04-07 05:23] LABS: ABG Base Excess 8.4 MMOL/L (-2.5-2.5); ABG HCO3 33.4 MMOL/L (20-26); ABG PCO2 47.9 MM HG (35-48); ABG PH 7.461 (7.35-7.45); ABG PO2 70.2 MM HG (80-95); ABG TCO2 34.8 MMOL/L (23-27); Allen Test Positive
[2021-04-07 05:33] LABS: Calcium 8.1 MG/DL (8.5-10.1); Osmolality,Calculated 277.8 MOS/KG (273-304); Potassium 4.1 MMOL/L (3.5-5.1)
[2021-04-07] MEDS: AMINOPHYLLINE 500 MG in SODIUM CHLORIDE 0.9% 480 ML IV SCH ×2 (06:31→23:47)
[2021-04-07] MEDS: ALBUTEROL 0.4 MG/ML 30 ML/BOTTLE PER TUBE SCH ×3 (06:31→21:53)
[2021-04-07] MEDS: DORNASE ALFA 2.5 MG/2.5 ML VIAL RESP TX SCH ×2 (07:35→18:01)
[2021-04-07] MEDS: ENOXAPARIN 60 MG/0.6 ML SYRINGE SUBCUT SCH ×2 (09:36→21:51)
[2021-04-07] MEDS: CHOLECALCIFEROL 1,000 UNIT TABLET PO SCH (09:36)
[2021-04-07] MEDS: ASPIRIN CHEW 81 MG TABLET PO SCH (09:37)
[2021-04-07] MEDS: FAMOTIDINE 20 MG TABLET PO SCH ×2 (09:38→21:51)
[2021-04-07] MEDS: BISOPROLOL 5 MG TABLET PO SCH (09:38)
[2021-04-07] MEDS: MONTELUKAST 10 MG TABLET PO SCH (09:38)
[2021-04-07] MEDS: ZINC OXIDE PASTE 113 GM TUBE TOP SCH ×2 (09:40→21:52)
[2021-04-07] MEDS: INSULIN LISPRO 100 UNIT/ML SUBCUT SCH ×3 (10:29→21:52)
[2021-04-07] MEDS: SODIUM CHLORIDE 0.45% 1,000 ML IV SCH ×2 (11:00→23:48)
[2021-04-07] MEDS: MORPHINE 2 MG/1 ML SYRINGE IV PRN (17:25)
[2021-04-07] MEDS: NICOTINE 21 MG/24 HR PATCH TRANSDERM SCH (18:21)
[2021-04-07] MEDS ORDERED: LORazepam 2 MG/1 ML VIAL ONE (19:48)
[2021-04-07] MEDS: LORazepam 2 MG/1 ML VIAL IV PRN (19:49)
[2021-04-07] MEDS: MIRTAZAPINE 15 MG TABLET PO SCH (21:51)
[2021-04-07] MEDS: ROSUVASTATIN 10 MG TABLET PO SCH (21:51)
[2021-04-07] MEDS: rOPINIRole 4 MG TABLET PO SCH (21:52)
[2021-04-08] MEDS: ALPRAZolam 0.25 MG TABLET PO PRN ×2 (00:05→09:14)
[2021-04-08] MEDS: ALBUTEROL/IPRATROPIUM 3 ML NEB RESP TX SCH ×4 (00:54→20:08)
[2021-04-08] MEDS: MORPHINE 2 MG/1 ML SYRINGE IV PRN ×2 (01:45→20:53)
[2021-04-08] MEDS: methylPREDNISolone SOD SUC 125 MG/2 ML VIAL IV SCH ×3 (01:50→16:46)
[2021-04-08 03:56] LABS: Basophils % 0.1 % (0.0-0.8); Hematocrit 19.2 VOL% (42.0-52.0); Immature Granulocytes % 1.4 %; Immature Granulocytes Absolute 0.31 #; Lymphocytes # 0.4 10*3/uL (1.4-4.0); Lymphocytes % 1.9 % (21.2-54.2); Mean Corpuscular HGB Conc 34.4 GM/DL (32-36); Mean Platelet Volume 10.7 FL (9.6-12.0); Monocytes % 5.6 % (1.7-12.7); Platelet Count 197 T/CUMM (130-400); Red Cell Distribution Width 13.1 % (9.3-17.3)
[2021-04-08 04:00] LABS: Hemoglobin 6.6 GM/DL (14.0-18.0); White Blood Count 22.5 T/CUMM (4-12)
[2021-04-08 04:05] LABS: Calcium 7.8 MG/DL (8.5-10.1); Osmolality,Calculated 281.2 MOS/KG (273-304); Potassium 4.6 MMOL/L (3.5-5.1)
[2021-04-08 04:11] LABS: Hypochromasia 1+; Lymphocytes 2 % (20-55); Platelet Estimate Normal; Segmented Neutrophils 98 % (50-85); Total Cells Counted 100
[2021-04-08] MEDS: MEROPENEM 500 MG in SODIUM CHLORIDE 0.9% 100 ML IV SCH ×4 (04:44→22:00)
[2021-04-08] MEDS: ALBUTEROL 0.4 MG/ML 30 ML/BOTTLE PER TUBE SCH ×3 (05:58→21:04)
[2021-04-08] MEDS ORDERED: SODIUM CHLORIDE 0.9% 1,000 ML IV PRN (06:30)
[2021-04-08] MEDS: DORNASE ALFA 2.5 MG/2.5 ML VIAL RESP TX SCH ×2 (07:35→20:13)
[2021-04-08] MEDS: ENOXAPARIN 60 MG/0.6 ML SYRINGE SUBCUT SCH ×2 (09:14→20:50)
[2021-04-08] MEDS: CHOLECALCIFEROL 1,000 UNIT TABLET PO SCH (09:15)
[2021-04-08] MEDS: MONTELUKAST 10 MG TABLET PO SCH (09:15)
[2021-04-08] MEDS: BISOPROLOL 5 MG TABLET PO SCH (09:15)
[2021-04-08] MEDS: ASPIRIN CHEW 81 MG TABLET PO SCH (09:15)
[2021-04-08] MEDS: ZINC OXIDE PASTE 113 GM TUBE TOP SCH ×2 (09:15→20:51)
[2021-04-08] MEDS: FAMOTIDINE 20 MG TABLET PO SCH (09:15)
[2021-04-08] MEDS: INSULIN LISPRO 100 UNIT/ML SUBCUT SCH ×2 (12:33→16:45)
[2021-04-08] MEDS: NICOTINE 21 MG/24 HR PATCH TRANSDERM SCH (12:34)
[2021-04-08] MEDS: SODIUM CHLORIDE 0.45% 1,000 ML IV SCH (14:00)
[2021-04-08] MEDS: PANTOPRAZOLE 40 MG VIAL IV SCH ×2 (16:44→20:50)
[2021-04-08] MEDS: AMINOPHYLLINE 500 MG in SODIUM CHLORIDE 0.9% 480 ML IV SCH (16:45)
[2021-04-08] MEDS: rOPINIRole 4 MG TABLET PO SCH (20:49)
[2021-04-08] MEDS: ROSUVASTATIN 10 MG TABLET PO SCH (20:50)
[2021-04-08] MEDS: MIRTAZAPINE 15 MG TABLET PO SCH (20:50)
[2021-04-09] MEDS: methylPREDNISolone SOD SUC 125 MG/2 ML VIAL IV SCH ×3 (00:10→16:19)
[2021-04-09] MEDS: INSULIN LISPRO 100 UNIT/ML SUBCUT SCH ×5 (00:11→23:34)
[2021-04-09] MEDS: ALBUTEROL/IPRATROPIUM 3 ML NEB RESP TX SCH ×4 (00:54→18:02)
[2021-04-09] MEDS ORDERED: LORazepam 2 MG/1 ML VIAL ONE (01:38)
[2021-04-09] MEDS: LORazepam 2 MG/1 ML VIAL IV PRN ×4 (01:41→21:04)
[2021-04-09] MEDS: MEROPENEM 500 MG in SODIUM CHLORIDE 0.9% 100 ML IV SCH ×4 (04:36→23:32)
[2021-04-09 04:49] LABS: Basophils % 0.1 % (0.0-0.8); Hematocrit 21.1 VOL% (42.0-52.0); Hemoglobin 7.3 GM/DL (14.0-18.0); Immature Granulocytes % 1.5 %; Immature Granulocytes Absolute 0.45 #; Lymphocytes # 0.3 10*3/uL (1.4-4.0); Lymphocytes % 0.8 % (21.2-54.2); Mean Corpuscular HGB Conc 34.6 GM/DL (32-36); Mean Corpuscular Volume 92.1 FL (87-102); Mean Platelet Volume 10.6 FL (9.6-12.0); Monocytes % 6.8 % (1.7-12.7); Neutrophils % 90.8 % (38.7-73.9); Red Blood Count 2.29 MC/CUMM (3.8-5.5); Red Cell Distribution Width 13.9 % (9.3-17.3)
[2021-04-09 04:50] LABS: Platelet Count 151 T/CUMM (130-400); White Blood Count 30.2 T/CUMM (4-12)
[2021-04-09] MEDS: SODIUM CHLORIDE 0.45% 1,000 ML IV SCH ×2 (05:00→23:33)
[2021-04-09 05:06] LABS: Hypochromasia 1+; Lymphocytes 1 % (20-55); Microcytosis 1+; Platelet Estimate Adequate; Segmented Neutrophils 89 % (50-85); Total Cells Counted 100
[2021-04-09 05:12] LABS: Calcium 7.1 MG/DL (8.5-10.1); Osmolality,Calculated 288.1 MOS/KG (273-304); Potassium 4.3 MMOL/L (3.5-5.1)
[2021-04-09] MEDS: ALBUTEROL 0.4 MG/ML 30 ML/BOTTLE PER TUBE SCH ×3 (05:16→23:14)
[2021-04-09 05:17] LABS: Allen Test Positive; Pt O2 Delivery Device BIPAP
[2021-04-09 05:20] LABS: ABG Base Excess 4.5 MMOL/L (-2.5-2.5); ABG HCO3 28.2 MMOL/L (20-26); ABG PH 7.415 (7.35-7.45); ABG TCO2 28.1 MMOL/L (23-27)
[2021-04-09 05:22] LABS: ABG PO2 38.8 MM HG (80-95)
[2021-04-09 06:02] LABS: ABG Base Excess 3.3 MMOL/L (-2.5-2.5); ABG HCO3 27.4 MMOL/L (20-26); ABG Oxygen Saturation 99.5 % (95-100); ABG TCO2 26.2 MMOL/L (23-27)
[2021-04-09 07:06] LABS: INR 1.2; PT Patient Result 12.9 SECS (10.5-12.0); Partial Thromboplastin Time 41.5 SECS (23.9-33.8)
[2021-04-09] MEDS: DORNASE ALFA 2.5 MG/2.5 ML VIAL RESP TX SCH ×2 (07:38→18:02)
[2021-04-09] MEDS: MONTELUKAST 10 MG TABLET PO SCH (08:18)
[2021-04-09] MEDS: CHOLECALCIFEROL 1,000 UNIT TABLET PO SCH (08:18)
[2021-04-09] MEDS: ALPRAZolam 0.25 MG TABLET PO PRN ×3 (08:18→16:14)
[2021-04-09] MEDS: NICOTINE 21 MG/24 HR PATCH TRANSDERM SCH (08:19)
[2021-04-09] MEDS: PANTOPRAZOLE 40 MG VIAL IV SCH (08:22)
[2021-04-09] MEDS: ZINC OXIDE PASTE 113 GM TUBE TOP SCH ×2 (08:22→20:47)
[2021-04-09] MEDS: FUROSEMIDE 40 MG/4 ML VIAL IV SCH ×2 (08:22→16:19)
[2021-04-09] MEDS: BISOPROLOL 5 MG TABLET PO SCH (08:23)
[2021-04-09] MEDS: AMINOPHYLLINE 500 MG in SODIUM CHLORIDE 0.9% 480 ML IV SCH (10:40)
[2021-04-09 15:19] LABS: Basophils % 0.1 % (0.0-0.8); Immature Granulocytes % 1.3 %; Immature Granulocytes Absolute 0.27 #; Lymphocytes # 0.2 10*3/uL (1.4-4.0); Lymphocytes % 0.7 % (21.2-54.2); Mean Corpuscular HGB Conc 34.4 GM/DL (32-36); Mean Corpuscular Volume 91.4 FL (87-102); Mean Platelet Volume 10.7 FL (9.6-12.0); Monocytes % 6.3 % (1.7-12.7); NRBC # 0.02 10*3/uL; Neutrophils % 91.6 % (38.7-73.9); Red Blood Count 1.97 MC/CUMM (3.8-5.5); Red Cell Distribution Width 13.5 % (9.3-17.3)
[2021-04-09 15:20] LABS: Platelet Count 89 T/CUMM (130-400)
[2021-04-09 15:22] LABS: Hemoglobin 6.2 GM/DL (14.0-18.0)
[2021-04-09 15:43] LABS: Anisocytosis 1+; Lymphocytes 1 % (20-55); Segmented Neutrophils 92 % (50-85); Total Cells Counted 100
[2021-04-09 15:44] LABS: Hypochromasia 1+; Platelet Estimate Decreased
[2021-04-09] MEDS: BUDESONIDE 0.5 MG/2 ML NEB RESP TX SCH (18:02)
[2021-04-09] MEDS: ARFORMOTEROL 15 MCG/2 ML NEB RESP TX SCH (18:02)
[2021-04-09] MEDS: ROSUVASTATIN 10 MG TABLET PO SCH (20:47)
[2021-04-09] MEDS: MIRTAZAPINE 15 MG TABLET PO SCH (20:47)
[2021-04-09] MEDS: rOPINIRole 4 MG TABLET PO SCH (20:47)
[2021-04-10] MEDS: ALPRAZolam 0.25 MG TABLET PO PRN (00:04)
[2021-04-10] MEDS: MORPHINE 2 MG/1 ML SYRINGE IV PRN (00:13)
[2021-04-10] MEDS: SODIUM CHLORIDE 0.45% 1,000 ML IV SCH ×4 (00:24→22:25)
[2021-04-10] MEDS: ALBUTEROL/IPRATROPIUM 3 ML NEB RESP TX SCH ×4 (00:38→19:16)
[2021-04-10] MEDS: methylPREDNISolone SOD SUC 125 MG/2 ML VIAL IV SCH ×3 (01:29→18:35)
[2021-04-10] MEDS: LORazepam 2 MG/1 ML VIAL IV PRN (01:29)
[2021-04-10 01:37] LABS: Hematocrit 24.6 VOL% (42.0-52.0); Immature Granulocytes Absolute 0.23 #; Lymphocytes # 0.3 10*3/uL (1.4-4.0); Lymphocytes % 1.1 % (21.2-54.2); Mean Corpuscular HGB Conc 34.6 GM/DL (32-36); Mean Corpuscular Volume 88.5 FL (87-102); Mean Platelet Volume 10.7 FL (9.6-12.0); Monocytes % 6.5 % (1.7-12.7); Neutrophils % 91.4 % (38.7-73.9); Red Blood Count 2.78 MC/CUMM (3.8-5.5); Red Cell Distribution Width 13.8 % (9.3-17.3); White Blood Count 23.2 T/CUMM (4-12)
[2021-04-10 01:38] LABS: Hemoglobin 8.5 GM/DL (14.0-18.0); Platelet Count 138 T/CUMM (130-400)
[2021-04-10 01:57] LABS: Lymphocytes 2 % (20-55); Platelet Estimate Normal; Segmented Neutrophils 95 % (50-85); Total Cells Counted 100
[2021-04-10] MEDS: AMINOPHYLLINE 500 MG in SODIUM CHLORIDE 0.9% 480 ML IV SCH ×3 (04:15→23:10)
[2021-04-10] MEDS: MEROPENEM 500 MG in SODIUM CHLORIDE 0.9% 100 ML IV SCH ×3 (04:43→18:37)
[2021-04-10 04:44] LABS: Basophils % 0.1 % (0.0-0.8); Hematocrit 24.2 VOL% (42.0-52.0); Hemoglobin 8.4 GM/DL (14.0-18.0); Immature Granulocytes % 1.2 %; Immature Granulocytes Absolute 0.27 #; Lymphocytes # 0.3 10*3/uL (1.4-4.0); Lymphocytes % 1.1 % (21.2-54.2); Mean Corpuscular HGB Conc 34.7 GM/DL (32-36); Mean Corpuscular Volume 89.6 FL (87-102); Mean Platelet Volume 10.7 FL (9.6-12.0); Monocytes % 6.5 % (1.7-12.7); Neutrophils % 91.1 % (38.7-73.9); Platelet Count 139 T/CUMM (130-400); Red Cell Distribution Width 14.1 % (9.3-17.3)
[2021-04-10 04:57] LABS: Calcium 7.5 MG/DL (8.5-10.1); Osmolality,Calculated 283.8 MOS/KG (273-304); Potassium 3.4 MMOL/L (3.5-5.1)
[2021-04-10 05:05] LABS: Eosinophils 1 % (0-10); Lymphocytes 1 % (20-55); Platelet Estimate Normal; Segmented Neutrophils 96 % (50-85); Total Cells Counted 100
[2021-04-10] MEDS: INSULIN LISPRO 100 UNIT/ML SUBCUT SCH ×4 (06:32→23:56)
[2021-04-10] MEDS: ALBUTEROL 0.4 MG/ML 30 ML/BOTTLE PER TUBE SCH ×3 (06:32→21:37)
[2021-04-10] MEDS: ARFORMOTEROL 15 MCG/2 ML NEB RESP TX SCH ×2 (07:13→19:16)
[2021-04-10] MEDS: BUDESONIDE 0.5 MG/2 ML NEB RESP TX SCH ×2 (07:13→19:16)
[2021-04-10] MEDS: DORNASE ALFA 2.5 MG/2.5 ML VIAL RESP TX SCH ×2 (07:30→19:16)
[2021-04-10] MEDS ORDERED: DEXMEDETOMIDINE 200 MCG in SODIUM CHLORIDE 0.9% 48 ML IV PRN (08:25)
[2021-04-10] MEDS: CHOLECALCIFEROL 1,000 UNIT TABLET PO SCH (09:40)
[2021-04-10] MEDS: MONTELUKAST 10 MG TABLET PO SCH (09:40)
[2021-04-10] MEDS: BISOPROLOL 5 MG TABLET PO SCH (09:40)
[2021-04-10] MEDS ORDERED: FUROSEMIDE 40 MG/4 ML VIAL ONE (09:48)
[2021-04-10] MEDS: FUROSEMIDE 40 MG/4 ML VIAL IV SCH (09:50)
[2021-04-10] MEDS: ZINC OXIDE PASTE 113 GM TUBE TOP SCH ×2 (09:50→21:37)
[2021-04-10] MEDS ORDERED: SODIUM CHLORIDE 0.9% 1,000 ML IV PRN (10:34)
[2021-04-10 11:05] LABS: Basophils % 0.1 % (0.0-0.8); Hematocrit 22.1 VOL% (42.0-52.0); Hemoglobin 7.7 GM/DL (14.0-18.0); Immature Granulocytes % 0.8 %; Immature Granulocytes Absolute 0.15 #; Lymphocytes # 0.4 10*3/uL (1.4-4.0); Lymphocytes % 2.2 % (21.2-54.2); Mean Corpuscular HGB Conc 34.8 GM/DL (32-36); Mean Corpuscular Volume 89.1 FL (87-102); Mean Platelet Volume 10.6 FL (9.6-12.0); Neutrophils % 90.9 % (38.7-73.9); Platelet Count 123 T/CUMM (130-400); Red Blood Count 2.48 MC/CUMM (3.8-5.5); Red Cell Distribution Width 14.2 % (9.3-17.3); White Blood Count 19.9 T/CUMM (4-12)
[2021-04-10 11:23] LABS: Lymphocytes 2 % (20-55); Segmented Neutrophils 95 % (50-85); Total Cells Counted 100
[2021-04-10 11:24] LABS: Hypochromasia Slight; Microcytosis 1+; Platelet Estimate Adequate
[2021-04-10] MEDS: PANTOPRAZOLE 40 MG VIAL IV SCH (12:36)
[2021-04-10] MEDS: NICOTINE 21 MG/24 HR PATCH TRANSDERM SCH (12:37)
[2021-04-10] MEDS ORDERED: POTASSIUM CHLORIDE RIDER 10 MEQ/100 ML PREMIX IV PRN (13:26)
[2021-04-10 13:34] LABS: INR 1.1; PT Patient Result 12.4 SECS (10.5-12.0); Partial Thromboplastin Time 34.7 SECS (23.9-33.8)
[2021-04-10] MEDS: POTASSIUM CHLORIDE RIDER 20 MEQ/100 ML PREMIX IV PRN ×2 (13:35→21:36)
[2021-04-10] MEDS: POTASSIUM CHLORIDE RIDER 10 MEQ/100 ML PREMIX IV PRN ×2 (15:35→23:35)
[2021-04-10 20:17] LABS: Hematocrit 27.6 VOL% (42.0-52.0); Hemoglobin 9.6 GM/DL (14.0-18.0)
[2021-04-10] MEDS: rOPINIRole 4 MG TABLET PO SCH (21:37)
[2021-04-10] MEDS: ROSUVASTATIN 10 MG TABLET PO SCH (21:37)
[2021-04-10] MEDS: MIRTAZAPINE 15 MG TABLET PO SCH (21:37)
[2021-04-10 23:52] LABS: Hematocrit 26.2 VOL% (42.0-52.0); Hemoglobin 9.1 GM/DL (14.0-18.0)
[2021-04-11] MEDS: methylPREDNISolone SOD SUC 125 MG/2 ML VIAL IV SCH ×3 (00:07→17:45)
[2021-04-11] MEDS: ALBUTEROL/IPRATROPIUM 3 ML NEB RESP TX SCH ×3 (00:15→13:32)
[2021-04-11 04:14] LABS: Basophils % 0.1 % (0.0-0.8); Hematocrit 26.9 VOL% (42.0-52.0); Hemoglobin 9.3 GM/DL (14.0-18.0); Immature Granulocytes % 0.8 %; Immature Granulocytes Absolute 0.14 #; Lymphocytes # 0.2 10*3/uL (1.4-4.0); Lymphocytes % 1.1 % (21.2-54.2); Mean Corpuscular HGB Conc 34.6 GM/DL (32-36); Mean Corpuscular Volume 90.6 FL (87-102); Mean Platelet Volume 10.6 FL (9.6-12.0); Platelet Count 117 T/CUMM (130-400); Red Blood Count 2.97 MC/CUMM (3.8-5.5); Red Cell Distribution Width 14.1 % (9.3-17.3); White Blood Count 17.4 T/CUMM (4-12)
[2021-04-11 04:39] LABS: Band Neutrophils 1 % (0-10); Lymphocytes 1 % (20-55); Segmented Neutrophils 96 % (50-85); Total Cells Counted 100
[2021-04-11 04:42] LABS: Hypochromasia 1+; Microcytosis 1+; Platelet Estimate Decreased
[2021-04-11] MEDS: SODIUM CHLORIDE 0.45% 1,000 ML IV SCH ×4 (05:15→23:05)
[2021-04-11] MEDS: ALBUTEROL 0.4 MG/ML 30 ML/BOTTLE PER TUBE SCH ×2 (06:55→16:23)
[2021-04-11] MEDS: INSULIN LISPRO 100 UNIT/ML SUBCUT SCH ×4 (07:03→23:58)
[2021-04-11] MEDS: BUDESONIDE 0.5 MG/2 ML NEB RESP TX SCH (07:29)
[2021-04-11] MEDS: ARFORMOTEROL 15 MCG/2 ML NEB RESP TX SCH (07:29)
[2021-04-11] MEDS: DORNASE ALFA 2.5 MG/2.5 ML VIAL RESP TX SCH (07:40)
[2021-04-11 08:26] LABS: Hematocrit 28.8 VOL% (42.0-52.0); Hemoglobin 9.9 GM/DL (14.0-18.0)
[2021-04-11 08:51] LABS: Calcium 7.7 MG/DL (8.5-10.1); Osmolality,Calculated 281.8 MOS/KG (273-304); Potassium 3.6 MMOL/L (3.5-5.1)
[2021-04-11] MEDS: PANTOPRAZOLE 40 MG VIAL IV SCH (09:34)
[2021-04-11] MEDS: POTASSIUM CHLORIDE 20 MEQ TABLET PO PRN ×2 (09:34→16:20)
[2021-04-11] MEDS: CHOLECALCIFEROL 1,000 UNIT TABLET PO SCH (09:34)
[2021-04-11] MEDS: MONTELUKAST 10 MG TABLET PO SCH (09:35)
[2021-04-11] MEDS: ALPRAZolam 0.25 MG TABLET PO PRN (09:35)
[2021-04-11] MEDS: BISOPROLOL 5 MG TABLET PO SCH (09:35)
[2021-04-11] MEDS: ZINC OXIDE PASTE 113 GM TUBE TOP SCH ×2 (09:35→20:42)
[2021-04-11] MEDS: NICOTINE 21 MG/24 HR PATCH TRANSDERM SCH (09:35)
[2021-04-11] MEDS: AMINOPHYLLINE 500 MG in SODIUM CHLORIDE 0.9% 480 ML IV SCH ×2 (11:11→17:45)
[2021-04-11 11:38] LABS: Hematocrit 25.8 VOL% (42.0-52.0); Hemoglobin 8.7 GM/DL (14.0-18.0)
[2021-04-11 15:48] LABS: Hematocrit 26.2 VOL% (42.0-52.0); Hemoglobin 9.1 GM/DL (14.0-18.0)
[2021-04-11] MEDS: MORPHINE 2 MG/1 ML SYRINGE IV PRN (16:20)
[2021-04-11] MEDS: rOPINIRole 4 MG TABLET PO SCH (20:41)
[2021-04-11] MEDS: MIRTAZAPINE 15 MG TABLET PO SCH (20:42)
[2021-04-11] MEDS: ROSUVASTATIN 10 MG TABLET PO SCH (20:42)
[2021-04-11] MEDS: ALBUTEROL 0.4 MG/ML 30 ML/BOTTLE PO SCH (22:10)
[2021-04-12] MEDS: methylPREDNISolone SOD SUC 125 MG/2 ML VIAL IV SCH ×3 (00:35→16:09)
[2021-04-12 03:54] LABS: Basophils % 0.1 % (0.0-0.8); Hematocrit 29.2 VOL% (42.0-52.0); Hemoglobin 10.1 GM/DL (14.0-18.0); Immature Granulocytes % 0.8 %; Immature Granulocytes Absolute 0.18 #; Lymphocytes # 0.1 10*3/uL (1.4-4.0); Lymphocytes % 0.7 % (21.2-54.2); Mean Corpuscular HGB Conc 34.6 GM/DL (32-36); Mean Corpuscular Volume 90.4 FL (87-102); Mean Platelet Volume 10.2 FL (9.6-12.0); Monocytes % 3.2 % (1.7-12.7); Neutrophils % 95.2 % (38.7-73.9); Platelet Count 131 T/CUMM (130-400); Red Blood Count 3.23 MC/CUMM (3.8-5.5); White Blood Count 21.5 T/CUMM (4-12)
[2021-04-12 04:15] LABS: Lymphocytes 1 % (20-55); Platelet Estimate Normal; Segmented Neutrophils 95 % (50-85); Total Cells Counted 100
[2021-04-12] MEDS: ARFORMOTEROL 15 MCG/2 ML NEB RESP TX SCH ×3 (05:30→19:50)
[2021-04-12] MEDS: ALBUTEROL/IPRATROPIUM 3 ML NEB RESP TX SCH ×4 (05:30→19:50)
[2021-04-12] MEDS: DORNASE ALFA 2.5 MG/2.5 ML VIAL RESP TX SCH ×3 (05:30→20:06)
[2021-04-12] MEDS: BUDESONIDE 0.5 MG/2 ML NEB RESP TX SCH ×3 (05:30→19:50)
[2021-04-12] MEDS: ALBUTEROL 0.4 MG/ML 30 ML/BOTTLE PO SCH (05:43)
[2021-04-12] MEDS: INSULIN LISPRO 100 UNIT/ML SUBCUT SCH ×3 (05:43→18:03)
[2021-04-12] MEDS: AMINOPHYLLINE 500 MG in SODIUM CHLORIDE 0.9% 480 ML IV SCH ×2 (06:48→10:50)
[2021-04-12] MEDS: SODIUM CHLORIDE 0.45% 1,000 ML IV SCH (08:05)
[2021-04-12] MEDS: MONTELUKAST 10 MG TABLET PO SCH (10:04)
[2021-04-12] MEDS: MEROPENEM 500 MG in SODIUM CHLORIDE 0.9% 100 ML IV SCH ×3 (10:04→22:01)
[2021-04-12] MEDS: CHOLECALCIFEROL 1,000 UNIT TABLET PO SCH (10:04)
[2021-04-12] MEDS: BISOPROLOL 5 MG TABLET PO SCH (10:04)
[2021-04-12] MEDS: PANTOPRAZOLE 40 MG VIAL IV SCH (10:04)
[2021-04-12 10:19] LABS: Calcium 7.9 MG/DL (8.5-10.1); Osmolality,Calculated 282.8 MOS/KG (273-304); Potassium 4.3 MMOL/L (3.5-5.1)
[2021-04-12] MEDS: NICOTINE 21 MG/24 HR PATCH TRANSDERM SCH (10:48)
[2021-04-12] MEDS: ZINC OXIDE PASTE 113 GM TUBE TOP SCH ×2 (10:48→22:16)
[2021-04-12] MEDS: ALBUTEROL 2 MG TABLET PO SCH ×2 (14:20→22:01)
[2021-04-12] MEDS: MIRTAZAPINE 15 MG TABLET PO SCH (21:58)
[2021-04-12] MEDS: rOPINIRole 4 MG TABLET PO SCH (21:58)
[2021-04-12] MEDS: ALPRAZolam 0.25 MG TABLET PO PRN (21:58)
[2021-04-12] MEDS: ROSUVASTATIN 10 MG TABLET PO SCH (21:59)
[2021-04-13] MEDS: INSULIN LISPRO 100 UNIT/ML SUBCUT SCH ×4 (00:53→18:30)
[2021-04-13] MEDS: ALBUTEROL/IPRATROPIUM 3 ML NEB RESP TX SCH ×5 (01:06→19:45)
[2021-04-13] MEDS: methylPREDNISolone SOD SUC 125 MG/2 ML VIAL IV SCH ×3 (01:07→17:17)
[2021-04-13] MEDS: SODIUM CHLORIDE 0.45% 1,000 ML IV SCH (01:07)
[2021-04-13] MEDS: MEROPENEM 500 MG in SODIUM CHLORIDE 0.9% 100 ML IV SCH ×4 (04:10→21:10)
[2021-04-13] MEDS: AMINOPHYLLINE 500 MG in SODIUM CHLORIDE 0.9% 480 ML IV SCH (04:37)
[2021-04-13] MEDS: ALBUTEROL 2 MG TABLET PO SCH ×3 (05:46→21:11)
[2021-04-13 06:29] LABS: Basophils % 0.1 % (0.0-0.8); Hematocrit 24.6 VOL% (42.0-52.0); Hemoglobin 8.4 GM/DL (14.0-18.0); Immature Granulocytes % 0.6 %; Lymphocytes # 0.2 10*3/uL (1.4-4.0); Mean Corpuscular HGB Conc 34.1 GM/DL (32-36); Mean Corpuscular Volume 92.5 FL (87-102); Mean Platelet Volume 10.2 FL (9.6-12.0); Monocytes % 3.5 % (1.7-12.7); Neutrophils % 94.8 % (38.7-73.9); Red Blood Count 2.66 MC/CUMM (3.8-5.5)
[2021-04-13 06:49] LABS: Platelet Count 107 T/CUMM (130-400)
[2021-04-13 06:56] LABS: Band Neutrophils 1 % (0-10); Hypochromasia Slight; Lymphocytes 1 % (20-55); Microcytosis 1+; Segmented Neutrophils 95 % (50-85); Total Cells Counted 100
[2021-04-13 06:57] LABS: Platelet Estimate Decreased
[2021-04-13] MEDS: BUDESONIDE 0.5 MG/2 ML NEB RESP TX SCH ×2 (07:05→19:45)
[2021-04-13] MEDS: ARFORMOTEROL 15 MCG/2 ML NEB RESP TX SCH ×2 (07:05→19:45)
[2021-04-13 07:09] LABS: Calcium 7.7 MG/DL (8.5-10.1)
[2021-04-13] MEDS: DORNASE ALFA 2.5 MG/2.5 ML VIAL RESP TX SCH ×2 (07:18→19:45)
[2021-04-13] MEDS ORDERED: ACETAMINOPHEN 325 MG TABLET PO PRN (09:24)
[2021-04-13] MEDS: NICOTINE 21 MG/24 HR PATCH TRANSDERM SCH (09:31)
[2021-04-13] MEDS: POTASSIUM CHLORIDE 20 MEQ TABLET PO PRN (09:32)
[2021-04-13] MEDS: PANTOPRAZOLE 40 MG VIAL IV SCH (09:32)
[2021-04-13] MEDS: CHOLECALCIFEROL 1,000 UNIT TABLET PO SCH (09:32)
[2021-04-13] MEDS: MONTELUKAST 10 MG TABLET PO SCH (09:32)
[2021-04-13] MEDS: BISOPROLOL 5 MG TABLET PO SCH (09:32)
[2021-04-13] MEDS: ZINC OXIDE PASTE 113 GM TUBE TOP SCH ×2 (09:33→21:26)
[2021-04-13] MEDS ORDERED: HYDROCORTISONE 2.5% RECTAL CREAM 30 GM TUBE TOP PRN (10:17)
[2021-04-13] MEDS ORDERED: HYDROCORTISONE 25 MG SUPP RECTAL PRN (10:17)
[2021-04-13] MEDS ORDERED: SODIUM CHLORIDE 0.9% 1,000 ML IV PRN (10:23)
[2021-04-13] MEDS ORDERED: THEOPHYLLINE ER 100 MG TABLET PO SCH (17:00)
[2021-04-13] MEDS: rOPINIRole 4 MG TABLET PO SCH (21:12)
[2021-04-13] MEDS: ALPRAZolam 0.25 MG TABLET PO PRN (21:12)
[2021-04-13] MEDS: MIRTAZAPINE 15 MG TABLET PO SCH (21:12)
[2021-04-13] MEDS: ROSUVASTATIN 10 MG TABLET PO SCH (21:12)
[2021-04-13 22:42] LABS: Hematocrit 32.6 VOL% (42.0-52.0); Hemoglobin 10.8 GM/DL (14.0-18.0)
[2021-04-14] MEDS: SODIUM CHLORIDE 0.45% 1,000 ML IV SCH ×3 (01:45→23:45)
[2021-04-14] MEDS: methylPREDNISolone SOD SUC 125 MG/2 ML VIAL IV SCH ×3 (01:46→17:19)
[2021-04-14] MEDS: MEROPENEM 500 MG in SODIUM CHLORIDE 0.9% 100 ML IV SCH ×4 (02:45→21:36)
[2021-04-14 05:49] LABS: Basophils % 0.1 % (0.0-0.8); Hemoglobin 10.7 GM/DL (14.0-18.0); Immature Granulocytes % 0.7 %; Immature Granulocytes Absolute 0.13 #; Lymphocytes # 0.1 10*3/uL (1.4-4.0); Lymphocytes % 0.7 % (21.2-54.2); Mean Corpuscular HGB Conc 33.4 GM/DL (32-36); Mean Corpuscular Volume 91.4 FL (87-102); Mean Platelet Volume 9.8 FL (9.6-12.0); Monocytes % 1.1 % (1.7-12.7); Neutrophils % 97.4 % (38.7-73.9); Platelet Count 100 T/CUMM (130-400); Red Cell Distribution Width 14.2 % (9.3-17.3); White Blood Count 17.7 T/CUMM (4-12)
[2021-04-14 06:18] LABS: Calcium 7.9 MG/DL (8.5-10.1); Osmolality,Calculated 274.1 MOS/KG (273-304)
[2021-04-14 06:50] LABS: Hypochromasia Slight; Lymphocytes 1 % (20-55); Microcytosis 1+; Segmented Neutrophils 98 % (50-85); Total Cells Counted 100
[2021-04-14 06:51] LABS: Platelet Estimate Decreased
[2021-04-14] MEDS: INSULIN LISPRO 100 UNIT/ML SUBCUT SCH ×5 (06:57→23:45)
[2021-04-14] MEDS: ALBUTEROL/IPRATROPIUM 3 ML NEB RESP TX SCH ×3 (07:10→19:26)
[2021-04-14] MEDS: BUDESONIDE 0.5 MG/2 ML NEB RESP TX SCH ×2 (07:10→19:26)
[2021-04-14] MEDS: ARFORMOTEROL 15 MCG/2 ML NEB RESP TX SCH ×2 (07:10→19:26)
[2021-04-14] MEDS: ALBUTEROL 2 MG TABLET PO SCH ×2 (07:14→14:43)
[2021-04-14] MEDS: DORNASE ALFA 2.5 MG/2.5 ML VIAL RESP TX SCH ×2 (07:24→19:26)
[2021-04-14] MEDS: ALPRAZolam 0.25 MG TABLET PO PRN ×2 (08:32→17:35)
[2021-04-14] MEDS: PANTOPRAZOLE 40 MG VIAL IV SCH (09:29)
[2021-04-14] MEDS: BISOPROLOL 5 MG TABLET PO SCH (09:34)
[2021-04-14] MEDS: CHOLECALCIFEROL 1,000 UNIT TABLET PO SCH (09:34)
[2021-04-14] MEDS: MONTELUKAST 10 MG TABLET PO SCH (09:34)
[2021-04-14] MEDS: NICOTINE 21 MG/24 HR PATCH TRANSDERM SCH (09:39)
[2021-04-14] MEDS: THEOPHYLLINE 100 MG PO SCH ×2 (09:41→17:10)
[2021-04-14] MEDS: ZINC OXIDE PASTE 113 GM TUBE TOP SCH ×2 (09:43→22:40)
[2021-04-14] MEDS: ROSUVASTATIN 10 MG TABLET PO SCH (21:36)
[2021-04-14] MEDS: rOPINIRole 4 MG TABLET PO SCH (21:36)
[2021-04-14] MEDS: MIRTAZAPINE 15 MG TABLET PO SCH (21:36)
[2021-04-15] MEDS: ALBUTEROL/IPRATROPIUM 3 ML NEB RESP TX SCH ×3 (00:05→13:49)
[2021-04-15] MEDS: methylPREDNISolone SOD SUC 125 MG/2 ML VIAL IV SCH (02:20)
[2021-04-15] MEDS: MEROPENEM 500 MG in SODIUM CHLORIDE 0.9% 100 ML IV SCH ×4 (02:22→21:50)
[2021-04-15] MEDS: INSULIN LISPRO 100 UNIT/ML SUBCUT SCH ×3 (05:55→17:29)
[2021-04-15] MEDS: ARFORMOTEROL 15 MCG/2 ML NEB RESP TX SCH ×2 (06:57→19:30)
[2021-04-15] MEDS: BUDESONIDE 0.5 MG/2 ML NEB RESP TX SCH ×2 (06:57→19:30)
[2021-04-15] MEDS: DORNASE ALFA 2.5 MG/2.5 ML VIAL RESP TX SCH ×2 (07:20→19:30)
[2021-04-15 07:55] LABS: Basophils % 0.1 % (0.0-0.8); Hematocrit 36.8 VOL% (42.0-52.0); Hemoglobin 12.4 GM/DL (14.0-18.0); Immature Granulocytes % 0.8 %; Immature Granulocytes Absolute 0.14 #; Lymphocytes # 0.1 10*3/uL (1.4-4.0); Lymphocytes % 0.7 % (21.2-54.2); Mean Corpuscular HGB Conc 33.7 GM/DL (32-36); Mean Corpuscular Volume 91.3 FL (87-102); Mean Platelet Volume 9.9 FL (9.6-12.0); Monocytes % 0.8 % (1.7-12.7); Neutrophils % 97.6 % (38.7-73.9); Platelet Count 104 T/CUMM (130-400); Red Blood Count 4.03 MC/CUMM (3.8-5.5); Red Cell Distribution Width 14.2 % (9.3-17.3); White Blood Count 16.8 T/CUMM (4-12)
[2021-04-15 08:06] LABS: Calcium 8.2 MG/DL (8.5-10.1); Osmolality,Calculated 267.5 MOS/KG (273-304)
[2021-04-15 08:10] LABS: ABG Base Excess 4.7 MMOL/L (-2.5-2.5); ABG HCO3 29.4 MMOL/L (20-26); ABG Oxygen Saturation 89.2 % (95-100); ABG PCO2 43.9 MM HG (35-48); ABG PH 7.444 (7.35-7.45); ABG PO2 53.7 MM HG (80-95); ABG TCO2 30.8 MMOL/L (23-27)
[2021-04-15 08:19] LABS: Anisocytosis 1+; Band Neutrophils 4 % (0-10); Macrocytosis Slight; Platelet Estimate Adequate; Segmented Neutrophils 96 % (50-85); Total Cells Counted 100
[2021-04-15] MEDS: ALBUTEROL 2 MG TABLET PO SCH ×4 (08:54→23:27)
[2021-04-15] MEDS: SODIUM CHLORIDE 0.45% 1,000 ML IV SCH (09:04)
[2021-04-15] MEDS: CHOLECALCIFEROL 1,000 UNIT TABLET PO SCH (09:11)
[2021-04-15] MEDS: PANTOPRAZOLE 40 MG VIAL IV SCH (09:11)
[2021-04-15] MEDS: NICOTINE 21 MG/24 HR PATCH TRANSDERM SCH (09:12)
[2021-04-15] MEDS: MONTELUKAST 10 MG TABLET PO SCH (09:12)
[2021-04-15] MEDS: BISOPROLOL 5 MG TABLET PO SCH (09:12)
[2021-04-15] MEDS: ZINC OXIDE PASTE 113 GM TUBE TOP SCH ×2 (09:13→23:26)
[2021-04-15] MEDS: THEOPHYLLINE 100 MG PO SCH ×2 (09:13→17:28)
[2021-04-15] MEDS ORDERED: methylPREDNISolone SOD SUC 125 MG/2 ML VIAL IV SCH (10:00)
[2021-04-15] MEDS: methylPREDNISolone SOD SUC 40 MG/1 ML VIAL IV SCH ×2 (12:41→20:15)
[2021-04-15] MEDS ORDERED: ALPRAZolam 0.25 MG TABLET PO SCH (15:00)
[2021-04-15] MEDS: LORazepam 2 MG/1 ML VIAL IV PRN ×2 (15:31→21:00)
[2021-04-15] MEDS ORDERED: ALPRAZolam 0.25 MG TABLET PO PRN (15:47)
[2021-04-15 16:05] LABS: ABG Base Excess 3.7 MMOL/L (-2.5-2.5); ABG HCO3 27.5 MMOL/L (20-26); ABG Oxygen Saturation 88.9 % (95-100); ABG PH 7.402 (7.35-7.45); ABG PO2 54.4 MM HG (80-95); ABG TCO2 25.6 MMOL/L (23-27)
[2021-04-15 18:00] VITALS: BP 76/58
[2021-04-15] MEDS: MORPHINE 2 MG/1 ML SYRINGE IV PRN (21:45)
[2021-04-15] MEDS ORDERED: HALOPERIDOL 5 MG/ML AMP IM ONE (23:19)
[2021-04-15] MEDS: MIRTAZAPINE 15 MG TABLET PO SCH (23:26)
[2021-04-15] MEDS: ROSUVASTATIN 10 MG TABLET PO SCH (23:26)
[2021-04-15] MEDS: clonazePAM 0.5 MG TABLET PO SCH (23:26)
[2021-04-15] MEDS: rOPINIRole 4 MG TABLET PO SCH (23:27)
[2021-04-15] MEDS ORDERED: HALOPERIDOL 5 MG/ML AMP IV ONE (23:29)
[2021-04-16] MEDS: INSULIN LISPRO 100 UNIT/ML SUBCUT SCH ×4 (01:19→18:04)
[2021-04-16] MEDS: SODIUM CHLORIDE 0.45% 1,000 ML IV SCH ×2 (01:19→08:28)
[2021-04-16 03:07] LABS: ABG Base Excess 5.2 MMOL/L (-2.5-2.5); ABG HCO3 28.9 MMOL/L (20-26); ABG Oxygen Saturation 90.4 % (95-100); ABG PCO2 45.6 MM HG (35-48); ABG PH 7.431 (7.35-7.45); ABG PO2 55.4 MM HG (80-95); ABG TCO2 26.4 MMOL/L (23-27)
[2021-04-16 03:18] LABS: Basophils % 0.1 % (0.0-0.8); Hematocrit 37.4 VOL% (42.0-52.0); Hemoglobin 12.6 GM/DL (14.0-18.0); Immature Granulocytes Absolute 0.16 #; Lymphocytes # 0.1 10*3/uL (1.4-4.0); Lymphocytes % 0.3 % (21.2-54.2); Mean Corpuscular HGB Conc 33.7 GM/DL (32-36); Mean Corpuscular Volume 92.1 FL (87-102); Mean Platelet Volume 9.6 FL (9.6-12.0); Monocytes % 0.7 % (1.7-12.7); Neutrophils % 97.9 % (38.7-73.9); Platelet Count 93 T/CUMM (130-400); Red Blood Count 4.06 MC/CUMM (3.8-5.5); Red Cell Distribution Width 14.2 % (9.3-17.3); White Blood Count 15.5 T/CUMM (4-12)
[2021-04-16] MEDS: methylPREDNISolone SOD SUC 40 MG/1 ML VIAL IV SCH ×3 (03:25→17:54)
[2021-04-16 03:26] LABS: Calcium 8.2 MG/DL (8.5-10.1); Osmolality,Calculated 269.4 MOS/KG (273-304); Potassium 4.2 MMOL/L (3.5-5.1)
[2021-04-16] MEDS: MEROPENEM 500 MG in SODIUM CHLORIDE 0.9% 100 ML IV SCH ×4 (03:33→21:28)
[2021-04-16 04:19] LABS: Platelet Estimate Decreased; Segmented Neutrophils 99 % (50-85); Total Cells Counted 100
[2021-04-16 04:22] LABS: Anisocytosis Slight; Microcytosis Slight; Schistocytes Few
[2021-04-16] MEDS: ARFORMOTEROL 15 MCG/2 ML NEB RESP TX SCH ×2 (07:17→19:31)
[2021-04-16] MEDS: DORNASE ALFA 2.5 MG/2.5 ML VIAL RESP TX SCH ×2 (07:17→19:40)
[2021-04-16] MEDS: BUDESONIDE 0.5 MG/2 ML NEB RESP TX SCH ×2 (07:17→19:31)
[2021-04-16] MEDS: ALBUTEROL 2 MG TABLET PO SCH ×3 (07:34→21:27)
[2021-04-16] MEDS: NICOTINE 21 MG/24 HR PATCH TRANSDERM SCH (08:26)
[2021-04-16] MEDS: PANTOPRAZOLE 40 MG VIAL IV SCH (08:27)
[2021-04-16] MEDS: ZINC OXIDE PASTE 113 GM TUBE TOP SCH ×3 (08:30→21:27)
[2021-04-16] MEDS: clonazePAM 0.5 MG TABLET PO SCH ×3 (08:56→21:27)
[2021-04-16] MEDS: CHOLECALCIFEROL 1,000 UNIT TABLET PO SCH (08:57)
[2021-04-16] MEDS: BISOPROLOL 5 MG TABLET PO SCH (08:58)
[2021-04-16] MEDS: MONTELUKAST 10 MG TABLET PO SCH (08:58)
[2021-04-16] MEDS: THEOPHYLLINE 100 MG PO SCH ×2 (11:14→16:01)
[2021-04-16] MEDS: MORPHINE 2 MG/1 ML SYRINGE IV PRN (13:12)
[2021-04-16] MEDS ORDERED: FUROSEMIDE 20 MG/2 ML VIAL IV ONE (13:30)
[2021-04-16] MEDS: MIRTAZAPINE 15 MG TABLET PO SCH (21:27)
[2021-04-16] MEDS: ROSUVASTATIN 10 MG TABLET PO SCH (21:27)
[2021-04-16] MEDS: rOPINIRole 4 MG TABLET PO SCH (21:27)
[2021-04-17] MEDS: methylPREDNISolone SOD SUC 40 MG/1 ML VIAL IV SCH ×3 (01:25→17:23)
[2021-04-17] MEDS: INSULIN LISPRO 100 UNIT/ML SUBCUT SCH ×4 (01:28→17:24)
[2021-04-17] MEDS: MEROPENEM 500 MG in SODIUM CHLORIDE 0.9% 100 ML IV SCH ×4 (03:03→20:40)
[2021-04-17 04:43] LABS: Basophils % 0.1 % (0.0-0.8); Hematocrit 41.7 VOL% (42.0-52.0); Hemoglobin 13.8 GM/DL (14.0-18.0); Immature Granulocytes % 0.9 %; Lymphocytes # 0.1 10*3/uL (1.4-4.0); Lymphocytes % 0.8 % (21.2-54.2); Mean Corpuscular HGB Conc 33.1 GM/DL (32-36); Mean Corpuscular Volume 91.9 FL (87-102); Mean Platelet Volume 9.9 FL (9.6-12.0); Monocytes % 0.6 % (1.7-12.7); Neutrophils % 97.6 % (38.7-73.9); Platelet Count 92 T/CUMM (130-400); Red Blood Count 4.54 MC/CUMM (3.8-5.5); Red Cell Distribution Width 14.6 % (9.3-17.3); White Blood Count 11.7 T/CUMM (4-12)
[2021-04-17 04:48] LABS: ABG Base Excess 6.1 MMOL/L (-2.5-2.5); ABG HCO3 30.6 MMOL/L (20-26); ABG Oxygen Saturation 94.2 % (95-100); ABG PCO2 43.3 MM HG (35-48); ABG PH 7.467 (7.35-7.45); ABG PO2 69.4 MM HG (80-95); ABG TCO2 31.9 MMOL/L (23-27); Allen Test Positive; Pt O2 Delivery Device BIPAP
[2021-04-17 05:06] LABS: Osmolality,Calculated 272.4 MOS/KG (273-304); Potassium 3.7 MMOL/L (3.5-5.1)
[2021-04-17 06:27] LABS: Anisocytosis 1+; Band Neutrophils 11 % (0-10); Macrocytosis 1+; Platelet Estimate Decreased; Segmented Neutrophils 88 % (50-85); Total Cells Counted 100
[2021-04-17] MEDS: BUDESONIDE 0.5 MG/2 ML NEB RESP TX SCH ×2 (06:58→18:01)
[2021-04-17] MEDS: DORNASE ALFA 2.5 MG/2.5 ML VIAL RESP TX SCH ×2 (06:58→18:01)
[2021-04-17] MEDS: ARFORMOTEROL 15 MCG/2 ML NEB RESP TX SCH ×2 (06:58→18:01)
[2021-04-17] MEDS: ALBUTEROL 2 MG TABLET PO SCH ×3 (07:21→21:25)
[2021-04-17] MEDS: clonazePAM 0.5 MG TABLET PO SCH ×3 (09:04→20:40)
[2021-04-17] MEDS: BISOPROLOL 5 MG TABLET PO SCH (09:04)
[2021-04-17] MEDS: NICOTINE 21 MG/24 HR PATCH TRANSDERM SCH (09:04)
[2021-04-17] MEDS: MONTELUKAST 10 MG TABLET PO SCH (09:04)
[2021-04-17] MEDS: PANTOPRAZOLE 40 MG VIAL IV SCH (09:04)
[2021-04-17] MEDS: CHOLECALCIFEROL 1,000 UNIT TABLET PO SCH (09:04)
[2021-04-17] MEDS: ZINC OXIDE PASTE 113 GM TUBE TOP SCH ×2 (09:05→20:41)
[2021-04-17] MEDS: MORPHINE 2 MG/1 ML SYRINGE IV PRN (09:11)
[2021-04-17] MEDS: THEOPHYLLINE 100 MG PO SCH (10:49)
[2021-04-17] MEDS: THEOPHYLLINE ER (24 HR) 300 MG CAPSULE PO SCH (11:33)
[2021-04-17] MEDS ORDERED: DOCUSATE SODIUM 100 MG/10 ML UDCUP PO ONE (15:32)
[2021-04-17] MEDS: ROSUVASTATIN 10 MG TABLET PO SCH (20:40)
[2021-04-17] MEDS: rOPINIRole 4 MG TABLET PO SCH (20:40)
[2021-04-17] MEDS: MIRTAZAPINE 15 MG TABLET PO SCH (20:40)
[2021-04-18] MEDS: INSULIN LISPRO 100 UNIT/ML SUBCUT SCH ×4 (00:01→17:12)
[2021-04-18] MEDS: MORPHINE 2 MG/1 ML SYRINGE IV PRN ×3 (01:15→20:44)
[2021-04-18] MEDS: methylPREDNISolone SOD SUC 40 MG/1 ML VIAL IV SCH ×3 (01:15→17:09)
[2021-04-18] MEDS: MEROPENEM 500 MG in SODIUM CHLORIDE 0.9% 100 ML IV SCH ×2 (03:57→08:36)
[2021-04-18 04:35] LABS: Basophils % 0.1 % (0.0-0.8); Hematocrit 38.4 VOL% (42.0-52.0); Hemoglobin 12.8 GM/DL (14.0-18.0); Lymphocytes # 0.1 10*3/uL (1.4-4.0); Lymphocytes % 0.9 % (21.2-54.2); Mean Corpuscular HGB Conc 33.3 GM/DL (32-36); Mean Platelet Volume 9.8 FL (9.6-12.0); Monocytes % 0.8 % (1.7-12.7); Neutrophils % 97.2 % (38.7-73.9); Platelet Count 76 T/CUMM (130-400); Red Blood Count 4.13 MC/CUMM (3.8-5.5); Red Cell Distribution Width 14.6 % (9.3-17.3); White Blood Count 9.6 T/CUMM (4-12)
[2021-04-18 04:55] LABS: Band Neutrophils 1 % (0-10); Lymphocytes 3 % (20-55); Platelet Estimate Decreased; Segmented Neutrophils 96 % (50-85); Total Cells Counted 100
[2021-04-18 05:03] LABS: Calcium 7.6 MG/DL (8.5-10.1); Osmolality,Calculated 275.1 MOS/KG (273-304); Potassium 3.9 MMOL/L (3.5-5.1)
[2021-04-18] MEDS: ALBUTEROL 2 MG TABLET PO SCH ×3 (06:09→21:51)
[2021-04-18] MEDS: DORNASE ALFA 2.5 MG/2.5 ML VIAL RESP TX SCH ×2 (07:40→18:01)
[2021-04-18] MEDS: BUDESONIDE 0.5 MG/2 ML NEB RESP TX SCH ×2 (07:40→18:01)
[2021-04-18] MEDS: ARFORMOTEROL 15 MCG/2 ML NEB RESP TX SCH ×2 (07:40→18:01)
[2021-04-18] MEDS: PANTOPRAZOLE 40 MG VIAL IV SCH (08:36)
[2021-04-18] MEDS: NICOTINE 21 MG/24 HR PATCH TRANSDERM SCH (08:37)
[2021-04-18] MEDS: BISOPROLOL 5 MG TABLET PO SCH (08:37)
[2021-04-18] MEDS: MONTELUKAST 10 MG TABLET PO SCH (08:37)
[2021-04-18] MEDS: ZINC OXIDE PASTE 113 GM TUBE TOP SCH ×2 (08:37→20:41)
[2021-04-18] MEDS: CHOLECALCIFEROL 1,000 UNIT TABLET PO SCH (08:37)
[2021-04-18] MEDS: THEOPHYLLINE ER (24 HR) 300 MG CAPSULE PO SCH (08:37)
[2021-04-18] MEDS: clonazePAM 0.5 MG TABLET PO SCH ×3 (08:37→20:41)
[2021-04-18] MEDS: LEVOFLOXACIN INJ 500 MG/100 ML PREMIX IV SCH (10:37)
[2021-04-18] MEDS: DESITIN 4OZ/NYSTATIN 15 GRAM MIXTURE PASTE TOP SCH ×2 (14:26→20:41)
[2021-04-18] MEDS: MIRTAZAPINE 15 MG TABLET PO SCH (20:41)
[2021-04-18] MEDS: ROSUVASTATIN 10 MG TABLET PO SCH (20:41)
[2021-04-18] MEDS: rOPINIRole 4 MG TABLET PO SCH (20:41)
[2021-04-19] MEDS: methylPREDNISolone SOD SUC 40 MG/1 ML VIAL IV SCH ×2 (00:15→09:59)
[2021-04-19] MEDS: INSULIN LISPRO 100 UNIT/ML SUBCUT SCH ×3 (00:15→12:04)
[2021-04-19] MEDS: MORPHINE 2 MG/1 ML SYRINGE IV PRN (03:22)
[2021-04-19 05:15] LABS: Hematocrit 39.2 VOL% (42.0-52.0); Immature Granulocytes % 1.2 %; Lymphocytes # 0.1 10*3/uL (1.4-4.0); Lymphocytes % 1.2 % (21.2-54.2); Mean Corpuscular HGB Conc 33.2 GM/DL (32-36); Mean Corpuscular Volume 95.1 FL (87-102); Mean Platelet Volume 10.4 FL (9.6-12.0); Monocytes % 0.7 % (1.7-12.7); Neutrophils % 96.9 % (38.7-73.9); Platelet Count 58 T/CUMM (130-400); Red Blood Count 4.12 MC/CUMM (3.8-5.5); Red Cell Distribution Width 14.6 % (9.3-17.3); White Blood Count 8.4 T/CUMM (4-12)
[2021-04-19 05:35] LABS: Lymphocytes 2 % (20-55); Platelet Estimate Decreased; Segmented Neutrophils 95 % (50-85); Total Cells Counted 100
[2021-04-19 05:45] LABS: Calcium 7.7 MG/DL (8.5-10.1); Osmolality,Calculated 279.8 MOS/KG (273-304); Potassium 4.2 MMOL/L (3.5-5.1)
[2021-04-19] MEDS: ALBUTEROL 2 MG TABLET PO SCH (06:31)
[2021-04-19] MEDS: ARFORMOTEROL 15 MCG/2 ML NEB RESP TX SCH (07:00)
[2021-04-19] MEDS: BUDESONIDE 0.5 MG/2 ML NEB RESP TX SCH (07:00)
[2021-04-19] MEDS: DORNASE ALFA 2.5 MG/2.5 ML VIAL RESP TX SCH (07:11)
[2021-04-19] MEDS ORDERED: NICOTINE 14 MG/24 HR PATCH TRANSDERM SCH (09:00)
[2021-04-19] MEDS: NICOTINE 21 MG/24 HR PATCH TRANSDERM SCH (09:08)
[2021-04-19] MEDS: MONTELUKAST 10 MG TABLET PO SCH (09:58)
[2021-04-19] MEDS: BISOPROLOL 5 MG TABLET PO SCH (09:58)
[2021-04-19] MEDS: THEOPHYLLINE ER (24 HR) 300 MG CAPSULE PO SCH (09:58)
[2021-04-19] MEDS: clonazePAM 0.5 MG TABLET PO SCH (09:58)
[2021-04-19] MEDS: ZINC OXIDE PASTE 113 GM TUBE TOP SCH (09:58)
[2021-04-19] MEDS: CHOLECALCIFEROL 1,000 UNIT TABLET PO SCH (09:58)
[2021-04-19] MEDS: PANTOPRAZOLE 40 MG VIAL IV SCH (09:59)
[2021-04-19] MEDS: DESITIN 4OZ/NYSTATIN 15 GRAM MIXTURE PASTE TOP SCH (09:59)
[2021-04-19] MEDS: LEVOFLOXACIN INJ 500 MG/100 ML PREMIX IV SCH (10:07)
[2021-04-19] MEDS ORDERED: FUROSEMIDE 40 MG/4 ML VIAL IV SCH (16:00)
== END 2021-04-19 12:44 | DRG 207 ==
LOC: N.ED 09:04 → SUATTDRO 11:05 → N.EDINP 11:05 → N.ICU 15:33 → N.5E 04-12 15:01 → N.CVR 04-15 16:26
PROVIDERS: ADMIT Internal Medicine; ATTEND Internal Medicine